=== PATIENT | female | born 2000 | race Two or more races ===

== ENCOUNTER 2024-07-05 18:03 | Emergency (ER) | payer SELFPAY ==
--- NOTE | 2024-07-05 18:34 | PD.EDADDENDU ---
Emergency Room Addendum Addendum Narrative: 23 year old female currently (GA 25 5/7 weeks). Here with abdominal pain, decreased movement, headache, and dizziness. High risk for preemclamsia. Exam unremarkable. Cleared for further care in our L&D department. Stalin Helton MD
--- NOTE | 2024-07-05 18:53 | XR_ITS ---
Examination: Complete OB ultrasound, less than 14 weeks, transabdominal Date and time of exam: July 05, 2024 1920 hours INDICATIONS: Pelvic cramping and vaginal bleeding beginning today Technique: Obstetrical ultrasound images less than 14 weeks performed via transabdominal imaging Findings: Uterus 8.4 cm with intrauterine gestational sac 1.3 cm corresponding to 6 weeks 1 day gestational age No pole, no cardiac activity Right ovary 2.5 cm artery no flow Left ovary 2.3 cm arterial flow IMPRESSION: Empty intrauterine gestational sac corresponding to 6 weeks 1 day, no pole, no cardiac activity Recommend transvaginal pelvic sonography follow-up to best assess for viability
[2024-07-05 19:18] VITALS: BP 110/72; PULSE 74; RESP 16; TEMP 37.2; O2SAT 100; BMI 25.9
[2024-07-05 19:26] LABS: Basophils # (Auto) 0.1 Thou/mm3 (0.0-0.2); Basophils % (Auto) 1 % (0-2.5); Eosinophils # (Auto) 0.1 Thou/mm3 (0.0-0.5); Eosinophils % (Auto) 1 % (0-10); Hematocrit 36.7 % (36.0-46.0); Hemoglobin 12.4 g/dL (12.0-16.0); Immature Granulocytes % (Auto) 1 % (0-0); Immature Granulocytes Auto 0.06 Thou/mm3 (0.00-0.00); Lymphocytes # (Auto) 2.5 Thou/mm3 (1.0-4.8); Lymphocytes % (Auto) 25 % (10-50); Mean Corpuscular HGB Conc 33.8 g/dl (31.0-37.0); Mean Corpuscular Hemoglobin 29.9 pg (25.0-35.0); Mean Corpuscular Volume 88 fL (80-100); Monocytes # (Auto) 0.7 Thou/mm3 (0.0-0.8); Monocytes % (Auto) 6 % (0-12); Neutrophils # (Auto) 6.8 Thou/mm3 (1.8-7.7); Neutrophils % (Auto) 66 % (37-80); Nucleated Red Blood Cell % 0 /100 WBC (0); Platelet Count 235 Thou/mm3 (140-440); RDW Standard Deviation 40.5 fL (36.4-46.3); Red Blood Count 4.15 Miln/mm3 (4.00-5.20); White Blood Count 10.3 Thou/mm3 (3.6-11.0)
[2024-07-05 19:47] LABS: Alanine Aminotransferase 15 U/L (10-49); Albumin, Serum 4.1 gm/dL (3.5-5.0); Albumin/Globulin Ratio 1.5 (1.2-2.2); Alkaline Phosphatase 92 U/L (46-116); Anion Gap 9 (7-16); Aspartate Amino Transferase 21 U/L (0-34); BUN/Creatinine Ratio 13 Ratio (12-20); Bilirubin,Total 0.3 mg/dL (0.3-1.2); Blood Urea Nitrogen 9 mg/dL (9-23); Calcium 9.5 mg/dL (8.3-10.6); Calcium (Corrected) 9.5 mg/dL (8.5-10.1); Carbon Dioxide 22.2 mMol/L (20.0-31.0); Chloride 107 mMol/L (98-107); Creatinine (Component) 0.7 mg/dL (0.6-1.3); Estimated Creatinine Clearance 109.2 mL/min (>60); Globulin 2.7 gm/dL (2.3-3.5); Glucose 93 mg/dL (74-106); Magnesium 1.9 mg/dL (1.6-2.6); Osmolality,Calculated 274 (275-295); Potassium 3.8 mMol/L (3.4-5.1); Sodium 138 mMol/L (136-145); Total Protein 6.8 gm/dL (5.7-8.2); eGFR > 60 See Note
--- NOTE | 2024-07-05 19:47 | PD.EDVAGBL ---
ED OB Contraction Preg RMI/HPI General Chief complaint: Vaginal Bleeding Stated complaint: VAGINAL BLEEDING Time Seen by Provider: 07/05/24 18:10 Arrival date/time: 07/05/24 18:03 RME / HPI RME / HPI Narrative: This section includes all my notes and documentations, including HPI, PE, and ED course. Stalin Helton MD HPI: 23-year-old female here with a couple day history of vaginal spotting. She is currently based on home test. Last menstruation was about 1-1/2 months ago. Slight cramping. No other complaints. ROS: All negative except as documented in HPI. Physical Exam: General: Alert and oriented. No acute distress when remaining still. Eyes: Conjunctivae and lids clear. ENT: No nasal congestion. Neck: Supple. Heart: RRR. Lungs: No respiratory distress. Good air movement. No rhonchi, wheezing, rales. Abdomen: Soft and nontender. Normal bowel sounds. No distension. No rebound or guarding. Back: No CVA tenderness. Skin: Warm and dry. Neuro: Alert and oriented X 3. I reviewed all diagnostic test results. My review of the OB ultrasound report is IUP (6 1/7 weeks) but no cardiac activity. Blood tests and urine tests normal, beta-hCG 26973. At this point, diagnoses include threatened . Recommended expectant management. Based on my best medical judgment, made decision no further evaluation or treatment indicated at this time. Patient understands and agrees to the discharge instructions customized and printed, see below. Discharge Instructions from Dr. Helton: 1.? ? ? After evaluation, you are . 2.? ? ? Today, your GA is 6 1/7 weeks.? 3.? ? ? Only time will determine whether you will have a successful or you will have a miscarriage.? If your symptoms stop, you can have a successful .? If your symptoms worsen, you may have a miscarriage.? If you have a miscarriage, unfortunately we won?t be able to save the baby because it?s too early.? Under 20 weeks, unfortunately we can?t help.?? 4.? ? ? See a private doctor on 07/08/2024 for recheck and further care.? No sexual activity until cleared by a doctor taking care of you.?? Ask to review all test results and official radiology reports, to make sure you receive all necessary follow-ups and monitoring. If needed, ask for help with repeat ultrasound. 5.? ? ? Seek immediate medical care for severe bleeding (soaking more than 3 pads per hour), intolerable pain, or with any concerns.? Instrucciones de mir de la Dra. Helton: 1. Despu?s de la evaluaci?n, est? embarazada. 2. Hoy, burnette edad gestacional es de 6 1/7 semanas. 3. Solo el tiempo determinar? si tendr? un embarazo exitoso o sufrir? un aborto espont?castro. Si akua s?ntomas desaparecen, puede tener un embarazo exitoso. Si akua s?ntomas empeoran, podr?a sufrir un aborto espont?castro. Si sufre un aborto espont?castro, lamentablemente no podremos salvar al beb? porque es demasiado pronto. Si tiene menos de 20 semanas, lamentablemente no podemos ayudarla. 4. Consulte con un m?dico privado el 08/07/2024 para aleks nueva revisi?n y atenci?n adicional. No tenga relaciones sexuales hasta que el m?dico que la atienda lo autorice. Solicite la revisi?n de todos los resultados de las pruebas y los informes radiol?gicos oficiales para asegurarse de recibir todos los seguimientos y la monitorizaci?n necesarios. Si es necesario, solicite ayuda para repetir la ecograf?a. 5. Busque atenci?n m?dica inmediata si tiene sangrado intenso (m?s de 3 toallas sanitarias empapadas por hora), dolor insoportable o cualquier otra inquietud. Stalin Helton MD Related Data Allergies Allergy/AdvReac Type Severity Reaction Status Date / Time No Known Allergies Allergy Verified 07/05/24 18:07 Course Quality Measures none Orders Category Date Time Status US OB <= 14 weeks fetus Stat Exams 07/05/24 18:53 Completed Beta HCG,Quantitative Stat Lab 07/05/24 19:14 Completed CBC Stat Lab 07/05/24 19:14 Completed CMP [Comprehensive Metabolic Panel] Stat Lab 07/05/24 19:14 Completed Magnesium Stat Lab 07/05/24 19:14 Completed Rh Testing Only Stat Lab 07/05/24 19:14 Received UA, C/S IF [Urinalysis, C/S if Indicated] Stat Lab 07/05/24 19:43 Completed Vital Signs Vital signs: Vital Signs Temperature 98.9 F 07/05/24 19:18 Pulse Rate 74 07/05/24 19:18 Respiratory Rate 16 07/05/24 19:18 Blood Pressure 110/72 07/05/24 19:18 Pulse Oximetry (%) 100 07/05/24 19:18 Oxygen Delivery Method Room Air 07/05/24 19:18 Vaginal Bleeding Patient data External records reviewed:: None Clinical information provided by:: patient Social determinants that could affect healthcare access:: none Patient has the following chronic illnesses:: None How is presenting disease/condition affected by chronic disease/condition?: no chronic disease Evaluation data The following diagnostics were reviewed and interpreted by me:: lab results and radiology exam(s) Lab and/or radiology exams considered but not ordered:: None Interpretation Summary: IUP Medications / Prescriptions Medications or Prescriptions considered but not ordered:: None Medication administrations:: None Consultations Consultation(s) initiated? (list below): No Diagnosis Vaginal Bleeding Differential Diagnosis: missed , threatened , dysfunctional uterine bleeding, incomplete and ectopic without intrauterine Most likely diagnosis given after review of the tests above:: Threatened Admission Indicated Admission indicated?: not indicated Explain why admission is indicated or not indicated:: There was no indication for admission. Admission Request Was there a request for admission?: No Disposition Plan Disposition Plan: Discharge Discharge Attestation Discharge Attestation: The patient and all family members were given an opportunity to ask questions and understood the discharge instructions. Discharge instructions specifically effects, indications for sooner follow up or return to the emergency department, and the expected course of current diagnosis. Patient condition: Stable Discharge Plan Plan Patient Disposition: HOME (Self Care) Problem List Clinical Impression: Threatened miscarriage Patient/Caregiver Discharge Instructions Discharge Activity: activity as tolerated Education Materials: ED Possible Miscarriage ... Additional Instructions: Discharge Instructions from Dr. Helton: 1.? ? ? After evaluation, you are . 2.? ? ? Today, your GA is 6 1/7 weeks.? 3.? ? ? Only time will determine whether you will have a successful or you will have a miscarriage.? If your symptoms stop, you can have a successful .? If your symptoms worsen, you may have a miscarriage.? If you have a miscarriage, unfortunately we won?t be able to save the baby because it?s too early.? Under 20 weeks, unfortunately we can?t help.?? 4.? ? ? See a private doctor on 07/08/2024 for recheck and further care.? No sexual activity until cleared by a doctor taking care of you.?? Ask to review all test results and official radiology reports, to make sure you receive all necessary follow-ups and monitoring. If needed, ask for help with repeat ultrasound. 5.? ? ? Seek immediate medical care for severe bleeding (soaking more than 3 pads per hour), intolerable pain, or with any concerns.? Instrucciones de mir de la Dra. Helton: 1. Despu?s de la evaluaci?n, est? embarazada. 2. Hoy, burnette edad gestacional es de 6 1/7 semanas. 3. Solo el tiempo determinar? si tendr? un embarazo exitoso o sufrir? un aborto espont?castro. Si akua s?ntomas desaparecen, puede tener un embarazo exitoso. Si akua s?ntomas empeoran, podr?a sufrir un aborto espont?castor. Si sufre un aborto espont?castro, lamentablemente no podremos salvar al beb? porque es demasiado pronto. Si tiene menos de 20 semanas, lamentablemente no podemos ayudarla. 4. Consulte con un m?dico privado el 08/07/2024 para aleks nueva revisi?n y atenci?n adicional. No tenga relaciones sexuales hasta que el m?dico que la atienda lo autorice. Solicite la revisi?n de todos los resultados de las pruebas y los informes radiol?gicos oficiales para asegurarse de recibir todos los seguimientos y la monitorizaci?n necesarios. Si es necesario, solicite ayuda para repetir la ecograf?a. 5. Busque atenci?n m?dica inmediata si tiene sangrado intenso (m?s de 3 toallas sanitarias empapadas por hora), dolor insoportable o cualquier otra inquietud. Print Language: Monegasque Stand Alone Forms: Ashley Award Info., Patient Portal Info Letter
[2024-07-05 19:53] LABS: Collection Type, Urine Clean Catch
[2024-07-05 19:57] LABS: Bilirubin,Urine Negative (Negative); Blood,Urine 2+ (Negative); Clarity,Urine Clear (Clear/Hazy); Color,Urine Lt-Yellow (Lt Yel-Yel); Culture Indicated,Urine Not Indicated; Glucose, Urine Negative (Negative); Ketones,Urine Negative (Negative); Leukocyte Esterase,Urine Negative (Negative); Nitrite,Urine Negative (Negative); PH,Urine 6.5 (5.0-7.0); Protein,Urine Negative (Neg - Trace); RBC,Urine 1 /hpf (0-3); Specific Gravity,Urine 1.015 (1.001-1.035); Squamous Epithelial Cell,Urine 1 /hpf (0-5); Urobilinogen,Urine Negative mg/dL (0.0-1.0); WBC,Urine < 1 /hpf (0-5)
[2024-07-05 20:26] LABS: Beta HCG,Quantitative 28536 mIU/mL (<5.0)
[2024-07-05 20:44] VITALS: RESP 18
== END 2024-07-05 20:44 | disposition home or self-care (01) ==
LOC: SERX 21:43
PROVIDERS: Emergency Provider Emergency Medicine
DX: O20.0 Threatened abortion (principal); Z3A.01 Less than 8 weeks gestation of pregnancy
CPT/HCPCS: 36415; 76801; 80053; 81001; 83735; 84702; 85025; 86901; 99284

== ENCOUNTER 2024-09-21 12:25 | Emergency (ER) | payer MEDICAID, SELFPAY ==
[2024-09-21 12:25] VITALS: BP 102/65; PULSE 80; RESP 18; TEMP 37.5; O2SAT 99
--- NOTE | 2024-09-21 12:30 | XR_ITS ---
Examination: Complete OB ultrasound greater than 14 weeks Date and time of exam: 2024 1305 hours INDICATIONS: Pelvic pain and vomiting today Findings: Viable intrauterine single fetus with single amniotic sac presentation variable Cardiac motion 132 BPM Placenta anterior grade 1 Three-vessel umbilical cord insertion seen Amniotic fluid volume adequate spine maternal left ventricle Cervix 5.9 cm Ovaries obscured by gas. Composite estimated gestational age based on BPD, head circumference, abdominal circumference, femur length is 17 weeks 0 days Estimated weight 157 g. Survey of intracranial anatomy, spinal anatomy, abdominal anatomy, four-chamber heart performed with no abnormalities identified. Impression: Viable uterine gestation breech presentation.
--- NOTE | 2024-09-21 12:30 | XR_ITS ---
Examination: Abdomen sonogram, Limited Date and time of exam: September 21, 2024 1300 hours INDICATIONS: Right upper abdominal pain pelvic pain today Technique: Real-time hernández scale transabdominal sonographic images of the upper abdomen obtained. Findings: Normal gallbladder Normal common bile duct 0.2 cm Pancreatic head 2.3 cm Liver 11.8 cm no liver lesions Normal hepatopedal portal venous flow Patent IVC IMPRESSION: Normal gallbladder
--- NOTE | 2024-09-21 12:33 | EDNOTE_ITS ---
Upper Respiratory Inf. RME/HPI General Chief Complaint: Abdominal Pain Stated Complaint: ABDOMINAL PAIN @ 18wks Grav2 Para2 Time Seen by Provider: 09/21/24 12:26 Arrival date/time: 09/21/24 12:25 Limitations: no limitations RME / HPI RME / HPI Narrative: 23 year old female currently sab0. Brought in by ambulance for sharp sudden pain and vomiting. Was noted to have low blood pressure on arrival after episode of vomiting. No diarrhea no fever. No vaginal bleeding. Related Data Allergies Allergy/AdvReac Type Severity Reaction Status Date / Time No Known Allergies Allergy Verified 07/05/24 18:07 Review of Systems Review of Systems Systems Reviewed: All systems reviewed, normal except as documented Constitutional Constitutional: Denies fever(s) Gastrointestinal Gastrointestinal: Reports as per HPI Genitourinary Genitourinary: Reports as per HPI Musculoskeletal Musculoskeletal: Reports as per HPI Integumentary/Breasts Skin/Breast: Denies changing lesions ED Exam General Limitations: Present no limitations General appearance: Present alert and in no apparent distress Eye Eye exam: Present normal appearance, PERRL and EOMI Respiratory Respiratory exam: Present normal lung sounds bilaterally Cardiovascular Cardiovascular exam: Present regular rate, normal rhythm and normal heart sounds Abdominal Exam Abdominal exam: Present soft and normal bowel sounds Extremities Exam Extremities exam: Present normal inspection and full ROM Back Exam Back exam: Present normal inspection and full ROM Psychiatric Psychiatric exam: Present normal affect and normal mood Skin Skin exam: Present warm, dry, intact and normal color Course Quality Measures none Orders Category Date Time Status US OB >= 14 weeks Fetus Stat Exams 09/21/24 12:30 Completed US gall bladder Stat Exams 09/21/24 12:30 Completed ABO/RH Type - Stat Lab 09/21/24 13:05 Completed Beta HCG,Quantitative Stat Lab 09/21/24 13:05 Completed CBC Stat Lab 09/21/24 13:05 Completed CMP [Comprehensive Metabolic Panel] Stat Lab 09/21/24 13:05 Completed Lipase Stat Lab 09/21/24 13:05 Completed UA [Urinalysis] Stat Lab 09/21/24 14:25 Completed Vital Signs Vital signs: Vital Signs Temperature 99.5 F 09/21/24 12:25 Pulse Rate 80 09/21/24 12:25 Respiratory Rate 18 09/21/24 12:25 Blood Pressure 102/65 09/21/24 12:25 Pulse Oximetry (%) 99 09/21/24 12:25 Oxygen Delivery Method Room Air 09/21/24 12:25 Upper Respiratory Infection MDM Narrative MDM Narrative:: Workup was reassuring vomiting pelvic pain and changes in blood pressure cannot be attributed to gestational weeks Patient data External records reviewed:: [facility] previous records Clinical information provided by:: patient and EMS Social determinants that could affect healthcare access:: other (specify) (Cannot be seen by PCP today) Patient has the following chronic illnesses:: How is presenting disease/condition affected by chronic disease/condition?: exacerbated by Evaluation data The following diagnostics were reviewed and interpreted by me:: lab results and radiology exam(s) Lab and/or radiology exams considered but not ordered:: Chest x-ray unlikely to change the course of plan Interpretation Summary: UA does not suggest UTI, ultrasound of gallbladder does not suggest gallstones, pelvic ultrasound does not show subchronic hemorrhage or concern Medications / Prescriptions Medications or Prescriptions considered but not ordered:: Consider antibiotic but unlikely to be beneficial Medication administrations:: Fluids given here and patient's blood pressure improved Consultations Consultation(s) initiated? (list below): No Diagnosis Upper Respiratory Differential Diagnosis: other Most likely diagnosis given after review of the tests above:: UTI, spontaneous , abdominal pain in Admission Indicated Admission indicated?: not indicated Admission Request Was there a request for admission?: No Disposition Plan Disposition Plan: Discharge Discharge Attestation Discharge Attestation: The patient and all family members were given an opportunity to ask questions and understood the discharge instructions. Discharge instructions specifically effects, indications for sooner follow up or return to the emergency department, and the expected course of current diagnosis. Patient condition: Stable Discharge Plan Plan Patient Disposition: HOME (Self Care) Discharge Disposition comment: Follow-up with PCP in 2 to 3 days Prescriptions/Referrals Referrals: Zi Castro MD [Primary Care Provider] - In 1 week Problem List Clinical Impression: Abdominal pain affecting , Nausea & vomiting, Hypotension Patient/Caregiver Discharge Instructions Education Materials: Abdominal Pain Print Language: Omani Stand Alone Forms: Ashley Award Info., Patient Portal Info Letter PA/BUSINESS SUPPORT PROFESSIONAL Supervising Physician PA/BUSINESS SUPPORT PROFESSIONAL Supervising Physician: Dr. brunson
[2024-09-21 12:47] VITALS: BMI 27.1
[2024-09-21 13:27] LABS: Basophils % (Auto) 0 % (0-2.5); Eosinophils # (Auto) 0.1 Thou/mm3 (0.0-0.5); Eosinophils % (Auto) 1 % (0-10); Hematocrit 32.2 % (36.0-46.0); Hemoglobin 11.5 g/dL (12.0-16.0); Immature Granulocytes % (Auto) 0 % (0-0); Immature Granulocytes Auto 0.04 Thou/mm3 (0.00-0.00); Lymphocytes # (Auto) 1.4 Thou/mm3 (1.0-4.8); Lymphocytes % (Auto) 15 % (10-50); Mean Corpuscular HGB Conc 35.7 g/dl (31.0-37.0); Mean Corpuscular Hemoglobin 30.4 pg (25.0-35.0); Mean Corpuscular Volume 85 fL (80-100); Monocytes # (Auto) 0.4 Thou/mm3 (0.0-0.8); Monocytes % (Auto) 5 % (0-12); Neutrophils # (Auto) 7.2 Thou/mm3 (1.8-7.7); Neutrophils % (Auto) 78 % (37-80); Nucleated Red Blood Cell % 0 /100 WBC (0); Platelet Count 245 Thou/mm3 (140-440); RDW Standard Deviation 38.4 fL (36.4-46.3); Red Blood Count 3.78 Miln/mm3 (4.00-5.20); White Blood Count 9.2 Thou/mm3 (3.6-11.0)
[2024-09-21 13:59] LABS: Alanine Aminotransferase < 7 U/L (10-49); Albumin, Serum 3.4 gm/dL (3.5-5.0); Albumin/Globulin Ratio 1.6 (1.2-2.2); Alkaline Phosphatase 64 U/L (46-116); Anion Gap 10 (7-16); BUN/Creatinine Ratio 10 Ratio (12-20); Bilirubin,Total 0.2 mg/dL (0.3-1.2); Blood Urea Nitrogen 5 mg/dL (9-23); Calcium 8.8 mg/dL (8.3-10.6); Calcium (Corrected) 9.3 mg/dL (8.5-10.1); Carbon Dioxide 22.9 mMol/L (20.0-31.0); Chloride 108 mMol/L (98-107); Creatinine (Component) 0.5 mg/dL (0.6-1.3); Estimated Creatinine Clearance 139.7 mL/min (>60); Globulin 2.1 gm/dL (2.3-3.5); Glucose 87 mg/dL (74-106); Lipase 21 U/L (12-53); Osmolality,Calculated 277 (275-295); Potassium 3.7 mMol/L (3.4-5.1); Sodium 141 mMol/L (136-145); Total Protein 5.5 gm/dL (5.7-8.2); eGFR > 60 See Note
[2024-09-21 14:32] LABS: Beta HCG,Quantitative 30695 mIU/mL (<5.0)
[2024-09-21 14:39] LABS: Collection Type, Urine Clean Catch
[2024-09-21 14:52] LABS: Bilirubin,Urine Negative (Negative); Blood,Urine Negative (Negative); Clarity,Urine Clear (Clear/Hazy); Glucose, Urine Negative (Negative); Ketones,Urine 2+ (Negative); Leukocyte Esterase,Urine Negative (Negative); Nitrite,Urine Negative (Negative); PH,Urine 7.5 (5.0-7.0); Protein,Urine Negative (Neg - Trace); RBC,Urine 7 /hpf (0-3); Specific Gravity,Urine 1.012 (1.001-1.035); Squamous Epithelial Cell,Urine 2 /hpf (0-5); Urobilinogen,Urine Negative mg/dL (0.0-1.0); WBC,Urine 1 /hpf (0-5)
[2024-09-21 14:54] LABS: Color,Urine Lt-Yellow (Lt Yel-Yel)
[2024-09-21 15:31] VITALS: BP 106/71; PULSE 82; RESP 16; TEMP 37.3; O2SAT 100
== END 2024-09-21 15:36 | disposition home or self-care (01) ==
PROVIDERS: Physician Assistant; Emergency Provider Family Medicine; PCP Family Medicine
DX: O99.891 Other specified diseases and conditions complicating pregnancy (principal); O21.9 Vomiting of pregnancy, unspecified; I95.9 Hypotension, unspecified; R10.11 Right upper quadrant pain; R10.2 Pelvic and perineal pain; Z3A.17 17 weeks gestation of pregnancy
CPT/HCPCS: 36415; 76705; 76805; 80053; 81001; 83690; 84702; 85025; 86900; 86901; 99284

== ENCOUNTER 2024-11-16 11:04 | Outpatient (AMB) | payer MEDICAID, SELFPAY ==
[2024-11-16 11:30] VITALS: BP 107/72; PULSE 79; RESP 17; TEMP 36.6; O2SAT 99; BMI 28.3
--- NOTE | 2024-11-16 11:30 | OBCLNT_ITS ---
Vital Signs 11/16/24 11:30 Height 1.52 m Height Method Stated Weight 65.431 kg Weight Measurement Method Standing Scale BMI 28.3 BP 107/72 Blood Pressure Source Automatic Cuff Blood Pressure Location Right Upper Arm Position Sitting Respiration 17 Pulse 79 Pulse Source Monitor Temp 97.8 F Temp Source Temporal Artery Scan Pulse Oximetry (%) 99 Oxygen Delivery Method Room Air Allergies/Home Meds Allergies & Medications Allergies No Known Allergies Allergy (Verified 11/16/24 11:31) Medication Reconciliation vitamin-ferrous fumarate 28 mg iron-folic acid 800 mcg tablet ( Vitamins with Minerals) 1 tab PO QDAY #60 tabs 11/16/24 [Rx] Intake Visit Data Collection New Patient or Established: Established Patient (seen at [facility] within 3 years) Reason for Visit:: OBI Seen by Clinical Staff ONLY (RN/MA): No 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 1. Little interest or pleasure in doing things: not at all 2. Feeling down, depressed, or hopeless: not at all Total score: 0 PHQ-9 3. Trouble falling or staying asleep, or sleeping too much: Not at all 4. Feeling tired or having little energy: Not at all 5. Poor appetite or overeating: Not at all 6. Feeling bad about yourself - or that you are a failure or have let yourself or your family down: Not at all 7. Trouble concentrating on things, such as reading the newspaper or watching television: Not at all 8. Moving or speaking so slowly that other people could have noticed? - Or the opposite - being so fidgety or restless that you have been moving around a lot more than usual: not at all 9. Thoughts that you would be better off or of hurting yourself in some way: Not at all Total score: 0 If you checked off any problems, how difficult have these problems made it for you to do your work, take care of things at home, or get along with other people?: not difficult at all Source: Developed by Drs. Rolly Maradiaga, Sara Maldonado, Aung Nunn and colleagues, with an educational emely from [employer]. Depression screen completed yes Social History Living Situation History Marital Status: Life Partner Lives With: Family Housing: House Tobacco History Smoking Status: Never smoker Second Hand Smoke Exposure: No Alcohol History Alcohol Intake: Never Domestic Abuse History Do You Feel Safe at Home: Yes History of Present Illness HPI Narrative 24-year-old 2 para 1 for OBI. Patient's last menstrual period was May 18, 2024. This gives due date February 22, 2025. Patient is sure about her dates. Patient had a positive test at [facility] in May. She was given a prescription for vitamins and that she has not had care since. Denies social habits. Denies surgery. Denies chronic illness. Father of the baby is involved. Patient is a 4-year-old at home. Reports good movement. Denies any signs and symptoms of labor. 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 No pTL or ob complaints. Denies LOF.VB.UC, fetus active. needs refill PNV. unable to go to [facility], no transportation, Sono today at [facility] [place] [place], refill pnv. OB panel, NIPT and carrier, 1 hr gtt/tsh. discuss PTL precaution, hydrate. rtc 4 week obc Menstrual History Menstrual reliability: definite Flow: normal Menstrual regularity: regular Monthly: Yes Age at menarche: 14 On control pills at conception: No OB History : 2 Para: 1 # of Living Children: 1 Delivery History 1st : Child's name: EULOGIO MAGDALENO date: 07/11/19 sex: female Gestational age at delivery (weeks): 40 Delivery type: vaginal weight (lbs): 2721.554 g History of depression before or after : No Infection History & Risk Evaluation History of STDs: none HIV risk evaluation: low risk Hepatitis B risk evaluation: low risk Patient or partner has history of Genital Herpes: No Varicella/chicken pox status: unknown Genetic Screening & History Genetic Screening/Teratology Counseling - Includes patient, baby's father, or anyone in either family with: 1. Patient's age 35 years or older as of estimated date of delivery: No 2. Thalassemia (Tajik, Italian, Mediterranean, or Background); MCV less th an 80: No 3. Neural Tube Defect (Meningomyelocele, Spina Bifida, or Anencephaly): No 4. Congenital Heart Defect: No 5. Down Syndrome: No 6. Cale-Sachs (Ashkenazi Anabaptist, Cajun, Turkish [place]): No 7. Dejan Disease (Ashkenazi Anabaptist): No 8. Familial Dysautonomia (Ashkenazi Anabaptist): No 9. Sickle Cell Disease or Trait (): No 10. Hemophilia or other blood disorders: No 11. Muscular Dystrophy: No 12. Cystic Fibrosis: No 13. Trafalgar's Chorea: No 14. Mental Retardation/Autism: No 15. Other inherited genetic or chromosomal disorder: No 16. Maternal Metabolic Disorder (EG,TYPE 1 Diabetes, PKU): No 17. Patient or baby's father had a child with defects not listed above: No 18. Recurrent loss or a stillbirth: No 19. Medications (including supplements, vitamins, herbs or otc drugs)/illicit/recreational drugs/alcohol since last menstrual period: No 20. Any other: No Infection History 1. Live with someone with TB or exposed to TB: No 2. Rash or viral illness since last menstrual period: No 3. Hepatitis B,C: No Other (see comments) Source: [employer] Review of Systems Review of Systems Systems Reviewed: All systems reviewed, normal except as documented Exam Narrative Physical exam: euthyroid. FH: 25 General Limitations: no limitations General Appearance: alert, in no apparent distress, comfortable, cooperative, healthy appearing, well developed and well groomed Head Head exam: atraumatic, normocephalic and normal inspection Chest Chest inspection: Present normal inspection and symmetric chest wall rise Resp Respiratory exam: Present normal lung sounds bilaterally Card Cardiovascular exam: Present regular rate, normal rhythm and normal heart sounds Psych Psychiatric exam: Present normal affect and normal mood Office Procedures OB Clinic LOC & Office Proc's Nursing/Assessment Patient Status: Established Patient OB Clinic Nursing Assessment: Medication Reconciliation, Update PMH in EMR and Vital Signs OB Clinic Coordination of Care: Complex Care and Chronic Disease 1-5, Consent,records obtained, informed consent, Education Simp Pt/Fam, Lab and Imaging orders and Staff clarify orders Special Needs: Heart tones Established Patient Charge Established Patient Point Assignment: 130 Established Patient Point Charge: EP Level 4 (120-155) Assessment & Plan Diagnosis / Problem List (1) Encounter for supervision of high risk in second trimester, antepartum: Status: Acute (2) Supervision of with history of pre-term labor, second trimester: Status: Acute Plan OB sono today at [facility]. Patient was given lab slip for NIPT carrier screen, OB panel, and 1 hour GTT. Refill prenatals. Discussed labor precautions and danger signs symptoms. Increase fluids. Return in 4 weeks OB check Additional Plan Follow Up: 4 Weeks (obc)
== END 2024-11-16 11:49 | disposition home or self-care (01) ==
LOC: HODSOBC 11:04
PROVIDERS: PCP Family Medicine; Referring Provider Family Medicine; Supervising Provider Advanced Practice Midwife; Visit Provider Advanced Practice Midwife
DX: O09.212 Supervision of pregnancy with history of pre-term labor, second trimester (principal); Z3A.26 26 weeks gestation of pregnancy
CPT/HCPCS: 99214; G0463

== ENCOUNTER → 2024-11-16 | Outpatient (CLI) | payer MEDICAID, SELFPAY ==
--- NOTE | 2024-11-16 12:22 | XR_ITS ---
Examination: Complete OB ultrasound greater than 14 weeks Date and time of exam: November 16, 2024 1237 hours INDICATIONS: Unknown size and dates, history labor Findings: Viable intrauterine single fetus with single amniotic sac presentation breech Cardiac motion 133 BPM Placenta anterior grade 1 Umbilical cord insertion seen Amniotic fluid index 21 cm Cervix 4.5 cm Ovaries obscured by bowel gas. Composite estimated gestational age based on BPD, head circumference, abdominal circumference, femur length is 25 weeks 2 days Estimated weight 754.5 g Survey of intracranial anatomy, spinal anatomy, abdominal anatomy, four-chamber heart performed with no abnormalities identified. Impression: Viable intrauterine gestation breech presentation.
== END | disposition home or self-care (01) ==
PROVIDERS: Referring Provider Advanced Practice Midwife; Visit Provider Advanced Practice Midwife
DX: O32.1XX0 Maternal care for breech presentation, not applicable or unspecified (principal); Z3A.25 25 weeks gestation of pregnancy
CPT/HCPCS: 76805

== ENCOUNTER 2024-12-15 10:01 | Outpatient (AMB) | payer MEDICAID, SELFPAY ==
--- NOTE | 2024-12-15 10:55 | AMB.OBVISIT ---
Vital Signs 12/15/24 10:56 Height 1.52 m Height Method Stated Weight 68.209 kg Weight Measurement Method Standing Scale BMI 29.5 BP 107/70 Blood Pressure Source Automatic Cuff Blood Pressure Location Left Upper Arm Position Sitting Respiration 16 Pulse 81 Pulse Source Monitor Temp 97.9 F Temp Source Oral Pulse Oximetry (%) 98 Oxygen Delivery Method Room Air Allergies/Home Meds Allergies & Medications Allergies No Known Allergies Allergy (Verified 12/15/24 10:55) Medication Reconciliation vitamin-ferrous fumarate 28 mg iron-folic acid 800 mcg tablet ( Vitamins with Minerals) 1 tab PO QDAY #60 tabs 11/16/24 [Rx Confirmed 12/15/24] Intake Visit Data Collection New Patient or Established: Established Patient (seen at [facility] within 3 years) Reason for Visit:: CARE Seen by Clinical Staff ONLY (RN/MA): No Human Resources Designate Required: No Do You Feel Safe at Home: Yes Authorities Contacted: N/A PCP or OBGYN visit in last 3 months: Yes Hx Now: Yes Are you currently on any form of Control: No Pain Present Currently: No Pain Scale Used: Campos-Saba/Numerical Pain scale:: 0 Smoking Status Smoking Status: Never smoker Questionnaires Covid-19 Vaccine Questionnaire Has patient been vacinated for Covid-19 Have you been vacinated for Covid-19: Yes PHQ-9 PHQ-2 Over the last 2 weeks, how often have you been bothered by any of the following problems? 1. Little interest or pleasure in doing things: not at all 2. Feeling down, depressed, or hopeless: not at all Total score: 0 PHQ-9 3. Trouble falling or staying asleep, or sleeping too much: Not at all 4. Feeling tired or having little energy: Not at all 5. Poor appetite or overeating: Not at all 6. Feeling bad about yourself - or that you are a failure or have let yourself or your family down: Not at all 7. Trouble concentrating on things, such as reading the newspaper or watching television: Not at all 8. Moving or speaking so slowly that other people could have noticed? - Or the opposite - being so fidgety or restless that you have been moving around a lot more than usual: not at all 9. Thoughts that you would be better off or of hurting yourself in some way: Not at all Total score: 0 Source: Developed by Drs. Rolly Maradiaga, Sara Maldonado, Aung Nunn and colleagues, with an educational emely from [employer]. 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 No pTL or ob complaints. Denies LOF.VB.UC, fetus active. needs refill PNV. unable to go to [facility], no transportation, Sono today at [facility], refill pnv. OB panel, NIPT and carrier, 1 hr gtt/tsh. discuss PTL precaution, hydrate. rtc 4 week obc 12/15/24 <del>?</del> 30w 1d 68.209 kg 107/70 absent unknown 30 136 active Fetus active. Denies labor complaints. Patient would like Tdap. Reports good movement. Denies leaking. Denies bleeding. And patient agrees to [facility] appointment Tdap. Third trimester labs. Schedule maternal- medicine appointment with Dr. Rubin. Increase fluids. Discussed labor precautions. Return in 2 weeks at which discussed tea Tdap. 3 hr gtt labs. Schedule maternal- medicine appointment with Dr. Rubin. Increase fluids. Discussed labor precautions. Return in 2 weeks at which discussed TDAP today RAIN Calculator Estimated Delivery Date Method Current WG Current Estimate 02/22/25 LMP (Certain) 30w 1d Other Estimates 02/27/25 Ultrasound #1 29w 3d Notes Visit Date: 12/15/24 Last Updated by: Judith Maguire CNM 1 hr gtt: 156, A1: 5.4, NIPT-, CF/SMA-, O+.abs-, rpr;;nr, rub imm, HBSAG-,HIV-,HC-, GC/CT-, .3, UTI tx with macrobid Visit Date: 11/16/24 Last Updated by: Judith Maguire CNM 24 yo . lmp 05/18/24. EDC: 02/22/25 Office Procedures OB Clinic LOC & Office Proc's Nursing/Assessment Patient Status: Established Patient OB Clinic Nursing Assessment: Medication Reconciliation, Update PMH in EMR and Vital Signs OB Clinic Coordination of Care: Complex Care and Chronic Disease 1-5, Consent,records obtained, informed consent, Education Simp Pt/Fam, 1 Ins Authorization, Lab and Imaging orders, Results/Orders obtained and Staff clarify orders Special Needs: Heart tones Established Patient Charge Established Patient Point Assignment: 150 Established Patient Point Charge: EP Level 4 (120-155) Immunizations diphth,pertus(acell),tetanus 2.5 Lf unit-8 mcg-5 Lf/0.5mL IM syringe Performing Provider: Judith Maguire CNM Performing Location: [facility] Administered by: Mesha Jacobson MA on 12/15/24 16:30 Dose Route Admin Location Dispensed Lot Number Expiration Date [facility] Senior Sales Operations Manager 0.5 mL IM Left Deltoid 0.5 mL [id number] 02/05/27 60725-058-11 [employer] VIS Given Date VIS Provided VIS Publication Date 12/15/24 Single Vaccine 24 Eligibility Eligibility Date Funding Source Public Non[facility] Assessment & Plan Diagnosis / Problem List (1) Encounter for supervision of high risk in third trimester, antepartum: Status: Acute Plan Tdap today. Scheduled maternal- medicine appointment for growth with Dr. Rubin. Discussed labor precautions. Increase fluids. Reviewed labs. 3-hour GTT ordered. Return in 2 weeks OB check Additional Plan Follow Up: 2 Weeks (obc) 2 Weeks
[2024-12-15 10:56] VITALS: BP 107/70; PULSE 81; RESP 16; TEMP 36.6; O2SAT 98; BMI 29.5
== END 2024-12-15 11:25 | disposition home or self-care (01) ==
LOC: HODSOBC 10:01
PROVIDERS: PCP Family Medicine; Referring Provider Family Medicine; Supervising Provider Advanced Practice Midwife; Visit Provider Advanced Practice Midwife
DX: O09.93 Supervision of high risk pregnancy, unspecified, third trimester (principal); Z3A.30 30 weeks gestation of pregnancy; Z23 Encounter for immunization
CPT/HCPCS: 90471; 90715; 99214; G0463

== ENCOUNTER 2024-12-29 10:22 | Outpatient (AMB) | payer MEDICAID, SELFPAY ==
[2024-12-29 10:31] VITALS: BP 112/74; PULSE 97; RESP 18; TEMP 36.3; O2SAT 98; BMI 30.3
--- NOTE | 2024-12-29 10:31 | OBCLNT_ITS ---
Vital Signs 12/29/24 10:31 Height 1.52 m Height Method Stated Weight 70.023 kg Weight Measurement Method Standing Scale BMI 30.3 BP 112/74 Blood Pressure Source Automatic Cuff Blood Pressure Location Left Upper Arm Position Sitting Respiration 18 Pulse 97 Pulse Source Monitor Temp 97.3 F Temp Source Oral Pulse Oximetry (%) 98 Oxygen Delivery Method Room Air Allergies/Home Meds Allergies & Medications Allergies No Known Allergies Allergy (Verified 12/29/24 10:32) Medication Reconciliation vitamin-ferrous fumarate 28 mg iron-folic acid 800 mcg tablet ( Vitamins with Minerals) 1 tab PO QDAY #60 tabs 11/16/24 [Rx Confirmed 12/29/24] Intake Visit Data Collection New Patient or Established: Established Patient (seen at [facility] within 3 years) Reason for Visit:: CARE Seen by Clinical Staff ONLY (RN/MA): No Bench Manager Required: No Do You Feel Safe at Home: Yes Authorities Contacted: N/A PCP or OBGYN visit in last 3 months: Yes Hx Now: Yes Are you currently on any form of Control: No Pain Present Currently: No Pain Scale Used: Campos-Saba/Numerical Pain scale:: 0 Smoking Status Smoking Status: Never smoker Questionnaires Covid-19 Vaccine Questionnaire Has patient been vacinated for Covid-19 Have you been vacinated for Covid-19: Yes PHQ-9 PHQ-2 Over the last 2 weeks, how often have you been bothered by any of the following problems? 1. Little interest or pleasure in doing things: not at all 2. Feeling down, depressed, or hopeless: not at all Total score: 0 PHQ-9 3. Trouble falling or staying asleep, or sleeping too much: Not at all 4. Feeling tired or having little energy: Not at all 5. Poor appetite or overeating: Not at all 6. Feeling bad about yourself - or that you are a failure or have let yourself or your family down: Not at all 7. Trouble concentrating on things, such as reading the newspaper or watching television: Not at all 8. Moving or speaking so slowly that other people could have noticed? - Or the opposite - being so fidgety or restless that you have been moving around a lot more than usual: not at all 9. Thoughts that you would be better off or of hurting yourself in some way: Not at all Total score: 0 Source: Developed by Drs. Rolly Maradiaga, Sara Maldonado, Aung Nunn and colleagues, with an educational emely from [employer]. 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 No pTL or ob complaints. Denies LOF.VB.UC, fetus active. needs refill PNV. unable to go to [facility], no transportation, Sono today at [facility] [place], refill pnv. OB panel, NIPT and carrier, 1 hr gtt/tsh. discuss PTL precaution, hydrate. rtc 4 week obc 12/15/24 -?-?-?-?-?-?-?-?-?-?-?-?- 30w 1d 68.209 kg 107/70 absent unknown 30 136 active Fetus active. Denies labor complaints. Patient would like Tdap. Reports good movement. Denies leaking. Denies bleeding. And patient agrees to [facility] appointment Tdap. Third tri mester labs. Schedule maternal- medicine appointment with Dr. Rubin. Increase fluids. Discussed labor precautions. Return in 2 weeks at which discussed tea Tdap. 3 hr gtt labs. [place] maternal- medicine appointment with Dr. Rubin. Increase fluids. Discussed labor precautions. Return in 2 weeks at which discussed TDAP today 12/29/24 -?-?-?-?-?-?-?-?-?-?-?-?- 32w 1d 70.023 kg 112/74 absent unknown 32 135 active Reports good movement. Fetus is active. Denies any signs symptoms of labor. Denies bleeding, contractions, leakage Discussed diet and weight. Increase activity. Patient declined ultrasound with maternal- medicine. So scheduled with [facility] for growth ultrasound. Discussed labor precautions. Increase fluids. Continue prenatals. Limit carbs and sugary foods and return in 2 weeks OB check. RAIN Calculator Estimated Delivery Date Method Current WG Current Estimate 02/22/25 LMP (Certain) 32w 1d Other Estimates 02/27/25 Ultrasound #1 31w 3d Notes Visit Date: 12/29/24 Last Updated by: Judith Maguire CNM 24 yo . LMP 05/18/24: edc: 02/22/25 final: RAIN: 02/22/25 1 hr gtt: 156/3 hr gtt wnl Visit Date: 12/15/24 Last Updated by: Judith Maguire CNM 1 hr gtt: 156, A1: 5.4, NIPT-, CF/SMA-, O+.abs-, rpr;;nr, rub imm, HBSAG-,HIV-,HC-, GC/CT-, .3, UTI tx with macrobid Visit Date: 11/16/24 Last Updated by: Judith Maguire CNM 24 yo . lmp 05/18/24. EDC: 02/22/25 Office Procedures OB Clinic LOC & Office Proc's Nursing/Assessment Patient Status: Established Patient OB Clinic Nursing Assessment: Medication Reconciliation, Update PMH in EMR and Vital Signs OB Clinic Coordination of Care: Complex Care and Chronic Disease 1-5, Consent,records obtained, informed consent, Education Simp Pt/Fam, 1 Ins Authorization, Lab and Imaging orders, Results/Orders obtained and Staff clarify orders Special Needs: Heart tones Established Patient Charge Established Patient Point Assignment: 150 Established Patient Point Charge: EP Level 4 (120-155) Assessment & Plan Diagnosis / Problem List (1) Encounter for supervision of high risk in third trimester, antepartum: Status: Acute Plan Schedule sono for growth at [facility]. Discussed labor precautions. I reviewed diet and weight gain with patient. Encouraged to walk 40 minutes a day. Continue vitamins. Return in 2 weeks OB check Additional Plan Follow Up: 2 Weeks (obc)
== END 2024-12-29 10:54 | disposition home or self-care (01) ==
LOC: HODSOBC 10:22
PROVIDERS: Supervising Provider Advanced Practice Midwife; Visit Provider Advanced Practice Midwife
DX: O09.93 Supervision of high risk pregnancy, unspecified, third trimester (principal); Z3A.32 32 weeks gestation of pregnancy
CPT/HCPCS: 99214; G0463

== ENCOUNTER 2025-01-13 11:27 | Outpatient (AMB) | payer MEDICAID, SELFPAY ==
--- NOTE | 2025-01-13 11:36 | OBCLNT_ITS ---
Vital Signs 01/13/25 11:37 Height 1.52 m Height Method Stated Weight 70.76 kg Weight Measurement Method Standing Scale BMI 30.6 BP 114/73 Blood Pressure Source Automatic Cuff Blood Pressure Location Left Upper Arm Position Sitting Respiration 16 Pulse 99 Pulse Source Monitor Temp 97.2 F Temp Source Oral Pulse Oximetry (%) 98 Oxygen Delivery Method Room Air Allergies/Home Meds Allergies & Medications Allergies No Known Allergies Allergy (Verified 01/13/25 11:37) Medication Reconciliation vitamin-ferrous fumarate 28 mg iron-folic acid 800 mcg tablet ( Vitamins with Minerals) 1 tab PO QDAY #60 tabs 11/16/24 [Rx Confirmed 01/13/25] Intake Visit Data Collection New Patient or Established: Established Patient (seen at [facility] within 3 years) Reason for Visit:: OBC Seen by Clinical Staff ONLY (RN/MA): No Stock Transfer Clerk Required: No Do You Feel Safe at Home: Yes Authorities Contacted: N/A PCP or OBGYN visit in last 3 months: Yes Date of Last PCP or OBGYN visit: 12/29/24 Hx Now: Yes Are you currently on any form of Control: No Pain Present Currently: No Pain Scale Used: Campos-Saba/Numerical Pain scale:: 0 Smoking Status Smoking Status: Never smoker Questionnaires Covid-19 Vaccine Questionnaire Has patient been vacinated for Covid-19 Have you been vacinated for Covid-19: Yes PHQ-9 PHQ-2 Over the last 2 weeks, how often have you been bothered by any of the following problems? 1. Little interest or pleasure in doing things: not at all 2. Feeling down, depressed, or hopeless: not at all Total score: 0 PHQ-9 3. Trouble falling or staying asleep, or sleeping too much: Not at all 4. Feeling tired or having little energy: Not at all 5. Poor appetite or overeating: Not at all 6. Feeling bad about yourself - or that you are a failure or have let yourself or your family down: Not at all 7. Trouble concentrating on things, such as reading the newspaper or watching television: Not at all 8. Moving or speaking so slowly that other people could have noticed? - Or the opposite - being so fidgety or restless that you have been moving around a lot more than usual: not at all 9. Thoughts that you would be better off or of hurting yourself in some way: Not at all Total score: 0 If you checked off any problems, how difficult have these problems made it for you to do your work, take care of things at home, or get along with other people?: not difficult at all Source: Developed by Drs. Rolly Maradiaga, Sara Maldonado, Aung Nunn and colleagues, with an educational emely from [employer]. 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 No pTL or ob complaints. Denies LOF.VB.UC, fetus active. needs refill PNV. unable to go to [facility], no transportation, Sono today at [facility] [place], refill pnv. OB panel, NIPT and carrier, 1 hr gtt/tsh. discuss PTL precaution, hydrate. rtc 4 week obc 12/15/24 -?-?-?-?-?-?-?-?-?-?-?-?- 30w 1d 68.209 kg 107/70 absent unknown 30 136 active Fetus active. Denies labor complaints. Patient would like Tdap. Reports good movement. Denies leaking. Denies bleeding. And patient agrees to [facility] appointment Tdap. Third tri mester labs. Schedule maternal- medicine appointment with Dr. Rubin. Increase fluids. Discussed labor precautions. Return in 2 weeks at which discussed tea Tdap. 3 hr gtt labs. [place] maternal- medicine appointment with Dr. Rubin. Increase fluids. Discussed labor precautions. Return in 2 weeks at which discussed TDAP today 12/29/24 -?-?-?-?-?-?-?-?-?-?--?-?- 32w 1d 70.023 kg 112/74 absent unknown 32 135 active Reports good movement. Fetus is active. Denies any signs symptoms of labor. Denies bleeding, contractions, leakage Discussed diet and weight. Increase activity. Patient declined ultrasound with maternal- medicine. So scheduled with [facility] for growth ultrasound. Discussed labor precautions. Increase fluids. Continue prenatals. Limit carbs and sugary foods and return in 2 weeks OB check. 01/13/25 -?-?-?-?-?-?-?-?-?-?-?-?- 34w 2d 70.76 kg 114/73 absent cephalic 34 135 active Fetus active. Denies labor complaints. Denies leaking, denies bleeding, denies contractions. Increase fluids. Discussed labor precautions. Discussed kick count. ER precautions given. Return in a week for OB check and GBS RAIN Calculator Estimated Delivery Date Method Current WG Current Estimate 02/22/25 LMP (Certain) 34w 2d Other Estimates 02/27/25 Ultrasound #1 33w 4d Notes Visit Date: 12/29/24 Last Updated by: Judith Maguire CNM 24 yo . LMP 05/18/24: edc: 02/22/25 final: RAIN: 02/22/25 1 hr gtt: 156/3 hr gtt wnl Visit Date: 12/15/24 Last Updated by: Judith Maguire CNM 1 hr gtt: 156, A1: 5.4, NIPT-, CF/SMA-, O+.abs-, rpr;;nr, rub imm, HBSAG-,HIV-,HC-, GC/CT-, .3, UTI tx with macrobid Visit Date: 11/16/24 Last Updated by: Judith Maguire CNM 24 yo . lmp 05/18/24. EDC: 02/22/25 Office Procedures OBC Clinic LOC & Office Proc's Nursing/Assessment Patient Status: Established Patient OB Clinic Nursing Assessment: Medication Reconciliation, Update PMH in EMR and Vital Signs OB Clinic Coordination of Care: Education Complex Pt/Fam, Consent,records obtained, informed consent, Lab and Imaging orders, Results/Orders obtained and Staff clarify orders Special Needs: Heart tones Established Patient Charge Established Patient Point Assignment: 115 Established Patient Point Charge: EP Level 3 (80-115) Assessment & Plan Diagnosis / Problem List (1) Encounter for supervision of high risk in third trimester, antepartum: Status: Acute Plan Discussed labor precautions. Kick count twice a day. Increase fluids. Continue prenatals. Discussed danger signs symptoms and ER precautions. Return in a week for OB check and GBS Additional Plan Follow Up: 1 Week (OBC)
[2025-01-13 11:37] VITALS: BP 114/73; PULSE 99; RESP 16; TEMP 36.2; O2SAT 98; BMI 30.6
== END 2025-01-13 11:38 | disposition home or self-care (01) ==
LOC: HODSOBC 11:27
PROVIDERS: Supervising Provider Advanced Practice Midwife; Visit Provider Advanced Practice Midwife
DX: O09.93 Supervision of high risk pregnancy, unspecified, third trimester (principal); Z3A.34 34 weeks gestation of pregnancy
CPT/HCPCS: 99213; G0463

== ENCOUNTER 2025-01-22 09:41 | Outpatient (AMB) | payer MEDICAID, SELFPAY ==
[2025-01-22 09:51] VITALS: BP 119/78; PULSE 84; RESP 17; TEMP 36.2; O2SAT 98; BMI 31.2
--- NOTE | 2025-01-22 09:51 | OBCLNT_ITS ---
Vital Signs 01/22/25 09:51 Height 1.52 m Height Method Stated Weight 72.235 kg Weight Measurement Method Standing Scale BMI 31.2 BP 119/78 Blood Pressure Source Automatic Cuff Blood Pressure Location Right Upper Arm Position Sitting Respiration 17 Pulse 84 Pulse Source Monitor Temp 97.1 F Temp Source Temporal Artery Scan Pulse Oximetry (%) 98 Oxygen Delivery Method Room Air Allergies/Home Meds Allergies & Medications Allergies No Known Allergies Allergy (Verified 01/22/25 09:55) Medication Reconciliation vitamin-ferrous fumarate 28 mg iron-folic acid 800 mcg tablet ( Vitamins with Minerals) 1 tab PO QDAY #60 tabs 11/16/24 [Rx Confirmed 01/22/25] Intake Visit Data Collection New Patient or Established: Established Patient (seen at [facility] within 3 years) Reason for Visit:: OBC Seen by Clinical Staff ONLY (RN/MA): No Ip Litigation Associate Required: No Do You Feel Safe at Home: Yes Authorities Contacted: N/A PCP or OBGYN visit in last 3 months: Yes Date of Last PCP or OBGYN visit: 01/13/25 Hx Now: Yes Are you currently on any form of Control: No Pain Present Currently: No Pain Scale Used: Campos-Saba/Numerical Smoking Status Smoking Status: Never smoker Questionnaires Covid-19 Vaccine Questionnaire Has patient been vacinated for Covid-19 Have you been vacinated for Covid-19: Yes PHQ-9 PHQ-2 Over the last 2 weeks, how often have you been bothered by any of the following problems? 1. Little interest or pleasure in doing things: not at all 2. Feeling down, depressed, or hopeless: not at all Total score: 0 PHQ-9 3. Trouble falling or staying asleep, or sleeping too much: Not at all 4. Feeling tired or having little energy: Not at all 5. Poor appetite or overeating: Not at all 6. Feeling bad about yourself - or that you are a failure or have let yourself or your family down: Not at all 7. Trouble concentrating on things, such as reading the newspaper or watching television: Not at all 8. Moving or speaking so slowly that other people could have noticed? - Or the opposite - being so fidgety or restless that you have been moving around a lot more than usual: not at all 9. Thoughts that you would be better off or of hurting yourself in some way: Not at all Total score: 0 If you checked off any problems, how difficult have these problems made it for you to do your work, take care of things at home, or get along with other people?: not difficult at all Source: Developed by Drs. Rolly Maradiaga, Sara Maldonado, Aung Nunn and colleagues, with an educational emely from [employer]. 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 No pTL or ob complaints. Denies LOF.VB.UC, fetus active. needs refill PNV. unable to go to [facility], no transportation, Sono today at [facility], refill pnv. OB panel, NIPT and carrier, 1 hr gtt/tsh. discuss PTL precaution, hydrate. rtc 4 week obc 12/15/24 -?-?-?-?-?-?-?-?-?-?-?-?- 30w 1d 68.209 kg 107/70 absent unknown 30 136 active Fetus active. Denies labor complaints. Patient would like Tdap. Reports good movement. Denies leaking. Denies bleeding. And patient agrees to [facility] appointment Tdap. Third tri mester labs. Schedule maternal- medicine appointment with Dr. Rubin. Increase fluids. Discussed labor precautions. Return in 2 weeks at which discussed tea Tdap. 3 hr gtt labs. Sche dule maternal- medicine appointment with Dr. Rubin. Increase fluids. Discussed labor precautions. Return in 2 weeks at which discussed TDAP today 12/29/24 -?-?-?-?-?-?-?-?-?-?-?-?- 32w 1d 70.023 kg 112/74 absent unknown 32 135 active Reports good movement. Fetus is active. Denies any signs symptoms of labor. Denies bleeding, contractions, leakage Discussed diet and weight. Increase activity. Patient declined ultrasound with maternal- medicine. So scheduled with [facility] for growth ultrasound. Discussed labor precautions. Increase fluids. Continue prenatals. Limit carbs and sugary foods and return in 2 weeks OB check. 01/13/25 -?-?-?-?-?-?-?-?-?-?-?-?- 34w 2d 70.76 kg 114/73 absent cephalic 34 135 active Fetus active. Denies labor complaints. Denies leaking, denies bleeding, denies contractions. Increase fluids. Discussed labor precautions. Discussed kick count. ER precautions given. Return in a week for OB check and GBS 01/22/25 -?-?-?-?-?-?-?-?-?-?-?-?- 35w 4d 72.235 kg 119/78 absent cephalic 35 135 active fetus active, deneis UC/VB/SROM. Return in a week OB check GBS today. Discussed labor precautions. Kick count twice a day. Increase fluids. Continue prenatals. Return in a week for OB check. Ultrasound for growth today. GBS today. Discussed labor precautions. Kick count twice a day. Increase fluids. Continue prenatals. Return in a week for OB check. Ultrasound for growth today. At [facility] image RAIN Calculator Estimated Delivery Date Method Current WG Current Estimate 02/22/25 LMP (Certain) 35w 4d Other Estimates 02/27/25 Ultrasound #1 34w 6d Notes Visit Date: 12/29/24 Last Updated by: Judith Maguire CNM 24 yo . LMP 05/18/24: edc: 02/22/25 final: RAIN: 02/22/25 1 hr gtt: 156/3 hr gtt wnl Visit Date: 12/15/24 Last Updated by: Judith Maguire CNM 1 hr gtt: 156, A1: 5.4, NIPT-, CF/SMA-, O+.abs-, rpr;;nr, rub imm, HBSAG-,HIV-,HC-, GC/CT-, .3, UTI tx with macrobid Visit Date: 11/16/24 Last Updated by: Judith Maguire CNM 24 yo . lmp 05/18/24. EDC: 02/22/25 Office Procedures OBC Clinic LOC & Office Proc's Nursing/Assessment Patient Status: Established Patient OB Clinic Nursing Assessment: Medication Reconciliation, Update PMH in EMR and Vital Signs OB Clinic Coordination of Care: Complex Care and Chronic Disease 1-5, Education Complex Pt/Fam, Consent,records obtained, informed consent, Lab and Imaging orders and Staff clarify orders Special Needs: Heart tones Miscellaneous Interventions: Culture Specimen Collection Established Patient Charge Established Patient Point Assignment: 150 Established Patient Point Charge: EP Level 4 (120-155) Assessment & Plan Diagnosis / Problem List (1) Encounter for supervision of high risk in third trimester, antepartum: Status: Acute Plan GBS today. Sono at [facility] for growth. Discussed labor precautions kick count. Increase fluids. Continue prenatals. Return in a week OB check Additional Plan Follow Up: 1 Week (obc)
== END 2025-01-22 10:29 | disposition home or self-care (01) ==
LOC: HODSOBC 09:41
PROVIDERS: Supervising Provider Advanced Practice Midwife; Visit Provider Advanced Practice Midwife
DX: O09.93 Supervision of high risk pregnancy, unspecified, third trimester (principal); Z3A.35 35 weeks gestation of pregnancy; Z36.85 Encounter for antenatal screening for Streptococcus B
CPT/HCPCS: 99214; G0463

== ENCOUNTER 2025-01-27 09:08 | Outpatient (AMB) | payer MEDICAID, SELFPAY ==
[2025-01-27 09:12] VITALS: BP 112/73; PULSE 95; RESP 17; TEMP 36.1; O2SAT 98; BMI 31.4
--- NOTE | 2025-01-27 09:12 | OBCLNT_ITS ---
Vital Signs 01/27/25 09:12 Height 1.52 m Height Method Stated Weight 72.745 kg Weight Measurement Method Standing Scale BMI 31.4 BP 112/73 Blood Pressure Source Automatic Cuff Blood Pressure Location Right Upper Arm Position Sitting Respiration 17 Pulse 95 Pulse Source Monitor Temp 96.9 F Temp Source Temporal Artery Scan Pulse Oximetry (%) 98 Oxygen Delivery Method Room Air Allergies/Home Meds Allergies & Medications Allergies No Known Allergies Allergy (Verified 01/22/25 09:55) Intake Visit Data Collection New Patient or Established: Established Patient (seen at [facility] within 3 years) Reason for Visit:: OBC Seen by Clinical Staff ONLY (RN/MA): No 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 1. Little interest or pleasure in doing things: not at all 2. Feeling down, depressed, or hopeless: not at all Total score: 0 PHQ-9 3. Trouble falling or staying asleep, or sleeping too much: Not at all 4. Feeling tired or having little energy: Not at all 5. Poor appetite or overeating: Not at all 6. Feeling bad about yourself - or that you are a failure or have let yourself or your family down: Not at all 7. Trouble concentrating on things, such as reading the newspaper or watching television: Not at all 8. Moving or speaking so slowly that other people could have noticed? - Or the opposite - being so fidgety or restless that you have been moving around a lot more than usual: not at all 9. Thoughts that you would be better off or of hurting yourself in some way: Not at all Total score: 0 If you checked off any problems, how difficult have these problems made it for you to do your work, take care of things at home, or get along with other people?: not difficult at all Source: Developed by Drs. Rolly Maradiaga, Sara Maldonado, Aung Nunn and colleagues, with an educational emely from [employer]. 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 No pTL or ob complaints. Denies LOF.VB.UC, fetus active. needs refill PNV. unable to go to [facility], no transportation, Sono today at [facility], refill pnv. OB panel, NIPT and carrier, 1 hr gtt/tsh. discuss PTL precaution, hydrate. rtc 4 week obc 12/15/24 -?-?-?-?-?-?-?-?-?-?-?-?- 30w 1d 68.209 kg 107/70 absent unknown 30 136 active Fetus active. Denies labor complaints. Patient would like Tdap. Reports good movement. Denies leaking. Denies bleeding. And patient agrees to [facility] appointment Tdap. Third tri mester labs. Schedule maternal- medicine appointment with Dr. Rubin. Increase fluids. Discussed labor precautions. Return in 2 weeks at which discussed tea Tdap. 3 hr gtt labs. Juan dule maternal- medicine appointment with Dr. Rubin. Increase fluids. Discussed labor precautions. Return in 2 weeks at which discussed TDAP today 12/29/24 -?-?-?-?-?-?-?-?-?-?-?-?- 32w 1d 70.023 kg 112/74 absent unknown 32 135 active Reports good movement. Fetus is active. Denies any signs symptoms of labor. Denies bleeding, contractions, leakage Discussed diet and weight. Increase activity. Patient declined ultrasound with maternal- medicine. So scheduled with [facility] for growth ultrasound. Discussed labor precautions. Increase fluids. Continue prenatals. Limit carbs and sugary foods and return in 2 weeks OB check. 01/13/25 -?-?-?-?-?-?-?-?-?-?-?-?- 34w 2d 70.76 kg 114/73 absent cephalic 34 135 active Fetus active. Denies labor complaints. Denies leaking, denies bleeding, denies contractions. Increase fluids. Discussed labor precautions. Discussed kick count. ER precautions given. Return in a week for OB check and GBS 01/22/25 -?-?-?-?-?-?-?-?-?-?-?-?- 35w 4d 72.235 kg 119/78 absent cephalic 35 135 active fetus active, deneis UC/VB/SROM. Return in a week OB check GBS today. Discussed labor precautions. Kick count twice a day. Increase fluids. Continue prenatals. Return in a week for OB check. Ultrasound for growth today. GBS today. Discussed labor precautions. Kick count twice a day. Increase fluids. Continue prenatals. Return in a week for OB check. Ultrasound for growth today. At [facility] image 01/27/25 -?--?-?-?-?-?-?-?-?-?-?-?- 36w 2d 72.745 kg 112/73 absent cephalic 36 135 active Fetus active per patient. Denies leaking, bleeding, contractions. No OB discomforts or complaints [facility] referral is pending. Patient has a referral approved. Discussed labor precautions and kick count. Discussed danger signs symptoms and ER precautions. Return precautions RAIN Calculator Estimated Delivery Date Method Current WG Current Estimate 02/22/25 LMP (Certain) 36w 2d Other Estimates 02/27/25 Ultrasound #1 35w 4d Notes Visit Date: 01/27/25 Last Updated by: Judith Maguire CNM 01/13: GBS- Visit Date: 12/29/24 Last Updated by: Judith Maguire CNM 24 yo . LMP 05/18/24: edc: 02/22/25 final: RAIN: 02/22/25 1 hr gtt: 156/3 hr gtt wnl Visit Date: 12/15/24 Last Updated by: Judith Maguire CNM 1 hr gtt: 156, A1: 5.4, NIPT-, CF/SMA-, O+.abs-, rpr;;nr, rub imm, HBSAG-,HIV-,HC-, GC/CT-, .3, UTI tx with macrobid Visit Date: 11/16/24 Last Updated by: Judith Maguire CNM 24 yo . lmp 05/18/24. EDC: 02/22/25 Office Procedures OBC Clinic LOC & Office Proc's Nursing/Assessment Patient Status: Established Patient OB Clinic Nursing Assessment: Medication Reconciliation, Update PMH in EMR and Vital Signs OB Clinic Coordination of Care: Complex Care and Chronic Disease 1-5, Education Complex Pt/Fam, Consent,records obtained, informed consent, Results/Orders obtained and Staff clarify orders Special Needs: Heart tones Established Patient Charge Established Patient Point Assignment: 125 Established Patient Point Charge: EP Level 4 (120-155) Assessment & Plan Diagnosis / Problem List (1) Encounter for supervision of high risk in third trimester, antepartum: Status: Acute Plan Reviewed labor precautions and kick count today. Discussed GBS results. Maternal- medicine appointment is pending. It was approved. Return in a week OB Additional Plan Follow Up: 1 Week (obc)
== END 2025-01-27 09:38 | disposition home or self-care (01) ==
LOC: HODSOBC 09:08
PROVIDERS: Supervising Provider Advanced Practice Midwife; Visit Provider Advanced Practice Midwife
DX: O09.93 Supervision of high risk pregnancy, unspecified, third trimester (principal); Z3A.36 36 weeks gestation of pregnancy
CPT/HCPCS: 99214; G0463

== ENCOUNTER 2025-02-05 11:59 | Observation (INO) | payer MEDICAID, SELFPAY ==
[2025-02-05] VITALS (48 sets, daily range): BP systolic 114; BP diastolic 78; PULSE 75–107; RESP 18–99; TEMP 36.9; O2SAT 97–100; BMI 30.6
[2025-02-05 13:41] LABS: Basophils # (Auto) 0.0 Thou/mm3 (0.0-0.2); Basophils % (Auto) 0 % (0-2.5); Eosinophils # (Auto) 0.1 Thou/mm3 (0.0-0.5); Eosinophils % (Auto) 1 % (0-10); Hematocrit 36.2 % (36.0-46.0); Hemoglobin 11.7 g/dL (12.0-16.0); Immature Granulocytes Auto 0.07 Thou/mm3 (0.00-0.00); Lymphocytes # (Auto) 1.2 Thou/mm3 (1.0-4.8); Lymphocytes % (Auto) 15 % (10-50); Mean Corpuscular HGB Conc 32.3 g/dl (31.0-37.0); Mean Corpuscular Hemoglobin 28.6 pg (25.0-35.0); Mean Corpuscular Volume 89 fL (80-100); Monocytes # (Auto) 0.5 Thou/mm3 (0.0-0.8); Monocytes % (Auto) 7 % (0-12); Neutrophils # (Auto) 6.4 Thou/mm3 (1.8-7.7); Neutrophils % (Auto) 77 % (37-80); Nucleated Red Blood Cell # 0.00 Thou/mm3 (0.00-0.00); Nucleated Red Blood Cell % 0 /100 WBC (0); Platelet Count 266 Thou/mm3 (140-440); RDW Standard Deviation 42.0 fL (36.4-46.3); Red Blood Count 4.09 Miln/mm3 (4.00-5.20); White Blood Count 8.3 Thou/mm3 (3.6-11.0)
[2025-02-05 14:07] LABS: Alanine Aminotransferase < 7 U/L (10-49); Albumin, Serum 3.8 gm/dL (3.5-5.0); Albumin/Globulin Ratio 1.7 (1.2-2.2); Alkaline Phosphatase 139 U/L (46-116); Anion Gap 12 (7-16); Aspartate Amino Transferase 14 U/L (0-34); BUN/Creatinine Ratio 10 Ratio (12-20); Bilirubin,Total 0.3 mg/dL (0.3-1.2); Blood Urea Nitrogen 5 mg/dL (9-23); Calcium 8.9 mg/dL (8.3-10.6); Calcium (Corrected) 9.1 mg/dL (8.5-10.1); Carbon Dioxide 20.0 mMol/L (20.0-31.0); Chloride 108 mMol/L (98-107); Creatinine (Component) 0.5 mg/dL (0.6-1.3); Estimated Creatinine Clearance 157.7 mL/min (>60); Globulin 2.2 gm/dL (2.3-3.5); Glucose 93 mg/dL (74-106); Osmolality,Calculated 276 (275-295); Potassium 3.7 mMol/L (3.4-5.1); Sodium 140 mMol/L (136-145); Total Protein 6.0 gm/dL (5.7-8.2); eGFR > 60 See Note
== END 2025-02-05 16:10 | disposition home or self-care (01) ==
PROVIDERS: Admitting Provider Advanced Practice Midwife; Visit Provider Advanced Practice Midwife
DX: O36.8130 Decreased fetal movements, third trimester, not applicable or unspecified (principal); Z3A.39 39 weeks gestation of pregnancy
CPT/HCPCS: 36415; 59025; 59899; 80053; 85025

== ENCOUNTER 2025-02-09 15:24 | Outpatient (AMB) | payer MEDICAID, SELFPAY ==
--- NOTE | 2025-02-09 15:31 | OBCLNT_ITS ---
Vital Signs 02/09/25 15:33 Weight 74.503 kg Weight Measurement Method Standing Scale BP 103/69 Blood Pressure Source Automatic Cuff Blood Pressure Location Left Upper Arm Position Sitting Respiration 16 Pulse 83 Pulse Source Monitor Temp 97.2 F Temp Source Oral Pulse Oximetry (%) 98 Oxygen Delivery Method Room Air Allergies/Home Meds Allergies & Medications Allergies No Known Allergies Allergy (Verified 02/09/25 15:34) Medication Reconciliation vitamin-ferrous fumarate 28 mg iron-folic acid 800 mcg tablet ( Vitamins with Minerals) 1 tab PO QDAY #60 tabs 11/16/24 [Rx Confirmed 02/09/25] Intake Visit Data Collection New Patient or Established: Established Patient (seen at [facility] within 3 years) Reason for Visit:: OBC Seen by Clinical Staff ONLY (RN/MA): No Gas Analyst Required: No Do You Feel Safe at Home: Yes Authorities Contacted: N/A PCP or OBGYN visit in last 3 months: Yes Date of Last PCP or OBGYN visit: 02/05/25 Hx Now: Yes Are you currently on any form of Control: No Pain Present Currently: No Pain Scale Used: Campos-Saba/Numerical Pain scale:: 0 Smoking Status Smoking Status: Never smoker Immunizations Flu Vaccine in the Last 12 Months: No Flu Vaccine Exclusion Criteria: No Exclusion Criteria Questionnaires Covid-19 Vaccine Questionnaire Has patient been vacinated for Covid-19 Have you been vacinated for Covid-19: Yes PHQ-9 PHQ-2 Over the last 2 weeks, how often have you been bothered by any of the following problems? 1. Little interest or pleasure in doing things: not at all 2. Feeling down, depressed, or hopeless: not at all Total score: 0 PHQ-9 3. Trouble falling or staying asleep, or sleeping too much: Not at all 4. Feeling tired or having little energy: Not at all 5. Poor appetite or overeating: Not at all 6. Feeling bad about yourself - or that you are a failure or have let yourself or your family down: Not at all 7. Trouble concentrating on things, such as reading the newspaper or watching television: Not at all 8. Moving or speaking so slowly that other people could have noticed? - Or the opposite - being so fidgety or restless that you have been moving around a lot more than usual: not at all 9. Thoughts that you would be better off or of hurting yourself in some way: Not at all Total score: 0 If you checked off any problems, how difficult have these problems made it for you to do your work, take care of things at home, or get along with other people?: not difficult at all Source: Developed by Drs. Rolly Maradiaga, Sara Maldonado, Aung Nunn and colleagues, with an educational emely from [employer]. 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 No pTL or ob complaints. Denies LOF.VB.UC, fetus active. needs refill PNV. unable to go to [facility], no transportation, Sono today at [facility], refill pnv. OB panel, NIPT and carrier, 1 hr gtt/tsh. discuss PTL precaution, hydrate. rtc 4 week obc 12/15/24 -?-?-?-?-?-?-?-?-?-?-?-?- 30w 1d 68.209 kg 107/70 absent unknown 30 136 active Fetus active. Denies labor complaints. Patient would like Tdap. Reports good movement. Denies leaking. Denies bleeding. And patient agrees to [facility] appointment Tdap. Third tri mester labs. Schedule maternal- medicine appointment with Dr. Rubin. Increase fluids. Discussed labor precautions. Return in 2 weeks at which discussed tea Tdap. 3 hr gtt labs. Sche dule maternal- medicine appointment with Dr. Rubin. Increase fluids. Discussed labor precautions. Return in 2 weeks at which discussed TDAP today 12/29/24 -?-?-?-?-?--?-?-?-?-?-?-?- 32w 1d 70.023 kg 112/74 absent unknown 32 135 active Reports good movement. Fetus is active. Denies any signs symptoms of labor. Denies bleeding, contractions, leakage Discussed diet and weight. Increase activity. Patient declined ultrasound with maternal- medicine. So scheduled with [facility] for growth ultrasound. Discussed labor precautions. Increase fluids. Continue prenatals. Limit carbs and sugary foods and return in 2 weeks OB check. 01/13/25 -?-?-?-?-?-?-?-?-?-?-?-?- 34w 2d 70.76 kg 114/73 absent cephalic 34 135 active Fetus active. Denies labor complaints. Denies leaking, denies bleeding, denies contractions. Increase fluids. Discussed labor precautions. Discussed kick count. ER precautions given. Return in a week for OB check and GBS 01/22/25 -?-?-?-?-?-?-?-?-?-?-?-?- 35w 4d 72.235 kg 119/78 absent cephalic 35 135 active fetus active, deneis UC/VB/SROM. Return in a week OB check GBS today. Discussed labor precautions. Kick count twice a day. Increase fluids. Continue prenatals. Return in a week for OB check. Ultrasound for growth today. GBS today. Discussed labor precautions. Kick count twice a day. Increase fluids. Continue prenatals. Return in a week for OB check. Ultrasound for growth today. At [facility] image 01/27/25 -?-?-?-?-?-?-?-?-?-?-?-?- 36w 2d 72.745 kg 112/73 absent cephalic 36 135 active Fetus active per patient. Denies leaking, bleeding, contractions. No OB discomforts or complaints [facility] referral is pending. Patient has a referral approved. Discussed labor precautions and kick count. Discussed danger signs symptoms and ER precautions. Return precautions 02/09/25 -?-?-?-?-?-?-?-?-?-?-?-?- 38w 1d 74.503 kg 103/69 occasional cephalic 38 156 active Patient was seen at [facility] labor and delivery and discharged home. She was seen because of discomforts of . Reports good movement. Occasional contraction. Denies leaking or Reviewed labor precautions. Kick count twice a day. Comfort measures for early labor. I discussed PIH signs symptoms and precautions. Danger signs symptoms return a week OB check RAIN Calculator Estimated Delivery Date Method Current WG Current Estimate 02/22/25 LMP (Certain) 38w 1d Other Estimates 02/27/25 Ultrasound #1 37w 3d Notes Visit Date: 02/09/25 Last Updated by: Judith Maguire CNM SONO 01/29: iup 34W3, efw: 45%, shey: 22 Visit Date: 01/27/25 Last Updated by: Judith Maguire CNM 01/13: GBS- Visit Date: 12/29/24 Last Updated by: Judith Maguire CNM 24 yo . LMP 05/18/24: edc: 02/22/25 final: RAIN: 02/22/25 1 hr gtt: 156/3 hr gtt wnl Visit Date: 12/15/24 Last Updated by: Judith Maguire CNM 1 hr gtt: 156, A1: 5.4, NIPT-, CF/SMA-, O+.abs-, rpr;;nr, rub imm, HBSAG-,HIV-,HC-, GC/CT-, .3, UTI tx with macrobid Visit Date: 11/16/24 Last Updated by: Judith Maguire CNM 24 yo . lmp 05/18/24. EDC: 02/22/25 Office Procedures OBC Clinic LOC & Office Proc's Nursing/Assessment Patient Status: Established Patient OB Clinic Nursing Assessment: Medication Reconciliation, Update PMH in EMR and Vital Signs OB Clinic Coordination of Care: Consent,records obtained, informed consent, Education Simp Pt/Fam, Lab and Imaging orders, Results/Orders obtained and Staff clarify orders Special Needs: Heart tones Established Patient Charge Established Patient Point Assignment: 110 Established Patient Point Charge: EP Level 3 (80-115) Assessment & Plan Diagnosis / Problem List (1) Encounter for supervision of high risk in third trimester, antepartum: Status: Acute Plan Discussed labor precautions. Discussed ER precautions. Discussed PIH signs and return parameters. Kick count twice a day. Comfort measures for early labor. And return in a week OB check Additional Plan Follow Up: 1 Week (OBC)
[2025-02-09 15:33] VITALS: BP 103/69; PULSE 83; RESP 16; TEMP 36.2; O2SAT 98
== END 2025-02-09 15:57 | disposition home or self-care (01) ==
LOC: HODSOBC 15:24
PROVIDERS: Supervising Provider Advanced Practice Midwife; Visit Provider Advanced Practice Midwife
DX: O09.93 Supervision of high risk pregnancy, unspecified, third trimester (principal); Z3A.38 38 weeks gestation of pregnancy
CPT/HCPCS: 99213; G0463

== ENCOUNTER 2025-02-26 12:10 | Inpatient (IN) | payer MEDICAID, SELFPAY ==
[2025-02-26] VITALS (116 sets, daily range): BP systolic 101–147; BP diastolic 55–86; PULSE 72–150; RESP 17–100; TEMP 36.7–37.7; O2SAT 91–100; BMI 31.5; BMI 31.4
--- NOTE | 2025-02-26 12:33 | XR_ITS ---
Examination: Complete OB ultrasound greater than 14 weeks Date and time of exam: February 26, 2025, 1323 hours INDICATIONS: Labor evaluation today, late to care Findings: Viable intrauterine single fetus with single amniotic sac presentation cephalic spine maternal left Cardiac motion 145 bpm Placenta anterior grade 3 Local cord insertion seen 3 vessel Amniotic fluid index 3.4 cm Cervix 3.5 cm Ovaries obscured by bowel gas. Composite estimated gestational age based on BPD, head circumference, abdominal circumference, femur length is 36 weeks 5 days Estimated weight 3005 g. Survey of intracranial anatomy, spinal anatomy, abdominal anatomy, four-chamber heart performed with no abnormalities identified. Impression: Viable intrauterine gestation cephalic presentation Amniotic fluid index 3.4 cm.
[2025-02-26 13:28] LABS: Basophils # (Auto) 0.0 Thou/mm3 (0.0-0.2); Basophils % (Auto) 0 % (0-2.5); Eosinophils # (Auto) 0.0 Thou/mm3 (0.0-0.5); Eosinophils % (Auto) 0 % (0-10); Hematocrit 40.0 % (36.0-46.0); Hemoglobin 13.3 g/dL (12.0-16.0); Immature Granulocytes Auto 0.07 Thou/mm3 (0.00-0.00); Lymphocytes # (Auto) 1.5 Thou/mm3 (1.0-4.8); Lymphocytes % (Auto) 14 % (10-50); Mean Corpuscular HGB Conc 33.3 g/dl (31.0-37.0); Mean Corpuscular Hemoglobin 29.4 pg (25.0-35.0); Mean Corpuscular Volume 88 fL (80-100); Monocytes # (Auto) 0.5 Thou/mm3 (0.0-0.8); Monocytes % (Auto) 5 % (0-12); Neutrophils # (Auto) 8.4 Thou/mm3 (1.8-7.7); Neutrophils % (Auto) 80 % (37-80); Nucleated Red Blood Cell # 0.00 Thou/mm3 (0.00-0.00); Nucleated Red Blood Cell % 0 /100 WBC (0); Platelet Count 281 Thou/mm3 (140-440); RDW Standard Deviation 42.5 fL (36.4-46.3); Red Blood Count 4.53 Miln/mm3 (4.00-5.20); White Blood Count 10.5 Thou/mm3 (3.6-11.0)
[2025-02-26] MEDS: RINGERS LACTATED 1000 ML 1,000 ML 100 ML IV (14:14)
[2025-02-26 14:40] LABS: Syphilis Nonreactive (Nonreactive)
[2025-02-26] MEDS: OXYTOCIN in NS 30 units 30 UNIT/500 ML BAG IV (15:47)
[2025-02-26] MEDS: METHYLERGONOVINE INJ 0.2 MG/ML VIAL IM (20:22)
[2025-02-26] MEDS: LIDOCAINE HCL 1% 20 ML VIAL INFL (20:23)
[2025-02-26] MEDS: BENZO/LANO/ALOE (Dermoplast) 60 GM CAN 1 SPRAY TOP (20:23)
[2025-02-26] MEDS: OXYTOCIN in NS 20 units 20 UNIT/1,000 ML BAG 125 UNIT IV (20:24)
[2025-02-26] MEDS: MINERAL OIL 30 ML UDC TOP (20:25)
[2025-02-26 20:29] LABS: Amphetamine/Metham Scrn,Ur OB Negative (Negative); Benzoylecgonine Screen, Ur OB Negative (Negative); Opiate Screen,Urine OB Negative (Negative); THC Screen,Urine OB Negative (Negative)
--- NOTE | 2025-02-26 20:34 | ESHP_ITS ---
Documentation for date of: 02/26/25 OB Labor/Induct. HPI History of Present Illness Chief complaint: Rupture of membranes : 2 Para: 1 Term pregnancies: 1 pregnancies: 0 Living children: 1 History of Abortions: Spontaneous and Elective: 0 History of Vaginal deliveries: 1 History of sections: No History of : No Date of last menstrual period: 05/18/24 RAIN: 02/22/25 Gestational Age (weeks): 40 Gestational Age (days): 4 Gestational age based on last menstrual period: 40 History of present illness: Patient is a 24-year-old 2 para 1-0-0-1 at 40 weeks and 4 days who presented to labor and delivery triage with contractions as well as leakage of fluid. On examination she was noted to have gross rupture of membranes. Rupture of membranes was confirmed through gross pooling. Patient was having contractions every 3 to 5 minutes. She denied any vaginal bleeding and reported adequate movements. She received care at the [facility]. Her labs were reviewed as scanned in. History of Present Dating criteria: LMP confirmed by 1st trimester US Adequate Care: Yes Labs Labs: Positive: Rubella Titre, Negative: RPR, Hepatitis B, HIV, Chlamydia, Gonorrhea and Group Beta Strep and Unknown: Herpes Type 1, Herpes Type 2 and Covid-19 Past Medical History Surgical History SURGICAL: Negative Section Meds Home Medications and Allergies Allergies Allergy/AdvReac Type Severity Reaction Status Date / Time No Known Allergies Allergy Verified 02/26/25 12:21 OB Exam Physical Exam Vital signs: Temp Pulse Resp BP Pulse Ox O2 Del Method 98.1 F 127 H 20 109/55 L 100 Room Air 02/26/25 16:45 02/26/25 20:22 02/26/25 16:45 02/26/25 20:22 02/26/25 20:14 02/26/25 16:45 Constitutional Constitutional: no acute distress Routine HEENT Exam Head: Present normocephalic and atraumatic Eye: Present EOMI and PERRL ENT: Present mucous membranes moist Routine Neck Exam Neck: Present supple and trachea midline Routine Cardiovascular Exam Cardiovascular: Present RRR Routine Abdominal Exam Abdominal: Present soft and normoactive bowel sounds Detailed Labor and Delivery Exam Dilation (cm): 1 Effacement (%): 70 Cervix position: mid station: -3 Consistency: medium Presentation: Vertex Membranes: ruptured Amniotic fluid: clear Baseline heart rate: 135 monitor accelerations: 15x15 monitor decelerations: Early detention variability: Average (6-10) Contraction frequency (min): 10 Routine Extremities Exam Extremities: Present full ROM Routine Skin Exam Skin: Present intact, dry and warm Routine Neurological Exam Neurological: Present alert, oriented X3 and CN II-XII intact Routine Psychiatric Exam Psychiatric: Present normal affect and normal thought process OB Results Labs 02/26/25 12:55 Labs: Short CBC 02/26/25 Range/Units 12:55 WBC 10.5 (3.6-11.0) Thou/mm3 Hgb 13.3 (12.0-16.0) g/dL Hct 40.0 (36.0-46.0) % Plt Count 281 (140-440) Thou/mm3 OB Assessment & Plan Assessment and Plan (1) Spontaneous rupture of membranes: Status: Acute Assessment and plan: Admit to inpatient status for augmentation/induction IV access, LR at 125 cc/h, labs to include CBC type and screen RPR Continuous maternal monitoring Complete OB ultrasound for estimated weight and presentation Augmentation with oxytocin per protocol Group B strep negative Pain management as per unit protocol Anticipate vaginal delivery
--- NOTE | 2025-02-26 20:34 | PD.LDDELS ---
Vacuum Assisted Delivery General Patient Counseled by physician:: Yes Informed consent to patient:: Yes Estimated weight:: 3175.147 g Cervical dilation:: fully dilated station:: +2 position:: JAMIE Molding:: No Caput:: No Vacuum Application Vacuum type:: Mityvac Vacuum application:: flexing median Cup Placement Flexion point identified:: Yes Cup approp. for head position:: Yes Maternal tissue excluded:: Yes Vacuum Procedure Number of pulls (contractions):: 1 Number of pop-offs:: 0 Recommended range maintained:: Yes Advancement made each pull:: Yes Vacuum successful:: Yes Immediate Evaluation Immediate assessment:: no apparent injury Data (Gong) Data Hx Section: No : 2 Term: 1 : 0 Livin Abortions: Spontaneous & Theraputic: 0 Delivery Data (Gong) Labor Data Initiation of labor: Augmentation Induction/Augmentation Agent: Pitocin ROM date: 02/26/25 ROM time: 08:00 Amniotic membrane rupture type: Spontaneous Amniotic fluid description: Clear Delivery Data Onset of labor date: 02/26/25 Onset of labor time: 15:00 Complete dilation date: 02/26/25 Complete dilation time: 19:40 Bradford delivery date: 02/26/25 Bradford delivery time: 20:17 Placenta delivery date: 02/26/25 Placenta delivery time: 20:18 Stage 1 total time: Labor - Stage 1 Duration 4 hours and 40 minutes Delivered by: eunice Delivery nurse: rodrigo roman rn. Neworn nurse: damian mckeon rn. Sales Ambassador at delivery: Yes (Dr. velasco) Support person(s) at delivery: Yoel oshea RN, Linda Luu RNC. Other staff at delivery: patient's mother in law. Delivery Method Delivery method: Operative Vaginal Delivery Presentation: Vertex Anesthesia Type Anesthesia Type: Local Placenta Placenta delivery description: Spontaneous Cord blood sent to lab: Yes cord blood collection: Cord Blood Type Episiotomy Episiotomy description: Right Mediolateral EBL Estimated blood loss (ml): 300 Umbilical Cord cord description: 3 Vessels Additional Procedures Patient started pushing spontaneously when she was 9 cm dilated. At the time of my initial exam she was fully dilated with station at -2. The bladder was noted to be full and it was emptied using a straight catheter. She will continue to push but her pushing was ineffective. Patient was counseled that baby was having recurrent deep variables and late decelerations while pushing and that we needed to expedite delivery. She stated understanding and consented to episiotomy and vacuum delivery. A right mediolateral episiotomy was performed after infiltrating local anesthetic. The mighty VAC vacuum was applied to the vertex at the flexion point and delivery was accomplished with 1 pull without any pop-off's. No maternal injury was noted other than the episiotomy. The fetus was handed over to the team. Data (Gong) Data 's gender: Male Identification band number: [id number] weight (gms): 2980 g Weight (pounds): 6 lbs and 9.1 ozs 1 minute: 8 5 minutes: 9
[2025-02-26] MEDS: TRANEXAMIC ACID 1,000 MG IVPB 1,000 MG/100 ML BAG 200 MG IV (20:36)
[2025-02-26] MEDS: IBUPROFEN TAB 400 MG TABLET 800 MG PO (20:36)
[2025-02-26] MEDS: ceFAZolin/D5W 2 GM IV 2 GM/100 ML BAG IV (21:07)
[2025-02-27 00:08] VITALS: BP 103/68; PULSE 103; RESP 22; TEMP 37.9; O2SAT 96
[2025-02-27] MEDS: ACETAMINOPHEN IVPB 1,000 MG/100 ML VIAL 250 MG IV (00:34)
[2025-02-27 04:00] VITALS: BP 106/59; PULSE 79; RESP 21; TEMP 36.9; O2SAT 97
[2025-02-27] MEDS: IBUPROFEN TAB 400 MG TABLET 800 MG PO (05:38)
[2025-02-27] MEDS: ceFAZolin/D5W 2 GM IV 2 GM/100 ML BAG IV ×3 (05:38→21:53)
[2025-02-27 07:32] LABS: Basophils # (Auto) 0.0 Thou/mm3 (0.0-0.2); Basophils % (Auto) 0 % (0-2.5); Eosinophils # (Auto) 0.0 Thou/mm3 (0.0-0.5); Eosinophils % (Auto) 0 % (0-10); Hematocrit 31.4 % (36.0-46.0); Hemoglobin 10.5 g/dL (12.0-16.0); Immature Granulocytes Auto 0.13 Thou/mm3 (0.00-0.00); Lymphocytes # (Auto) 2.2 Thou/mm3 (1.0-4.8); Lymphocytes % (Auto) 12 % (10-50); Mean Corpuscular HGB Conc 33.4 g/dl (31.0-37.0); Mean Corpuscular Hemoglobin 29.9 pg (25.0-35.0); Mean Corpuscular Volume 90 fL (80-100); Monocytes # (Auto) 1.1 Thou/mm3 (0.0-0.8); Monocytes % (Auto) 6 % (0-12); Neutrophils # (Auto) 14.8 Thou/mm3 (1.8-7.7); Neutrophils % (Auto) 81 % (37-80); Nucleated Red Blood Cell # 0.00 Thou/mm3 (0.00-0.00); Nucleated Red Blood Cell % 0 /100 WBC (0); Platelet Count 235 Thou/mm3 (140-440); RDW Standard Deviation 43.4 fL (36.4-46.3); Red Blood Count 3.51 Miln/mm3 (4.00-5.20); White Blood Count 18.2 Thou/mm3 (3.6-11.0)
[2025-02-27 08:00] VITALS: BP 96/60; RESP 18; TEMP 36.8; O2SAT 97
--- NOTE | 2025-02-27 08:42 | ESPR_ITS ---
Subjective Subjective Interval history: Delivery type: Vacuum-assisted vaginal delivery Patient doing well this morning. No acute complaints. Ambulating, tolerating p.o., and voiding without difficulty. HTN/Pre-E screen negative: No CP, SOB, CASEY, visual changes, RUQ pain. : Yes Lochia: diminishing Bowel: Flatus + / BM + UOP: Voiding freely Exam Vital Signs Temp Pulse Resp BP Pulse Ox O2 Del Method 98.4 F 79 21 H 106/59 L 97 Room Air 02/27/25 04:00 02/27/25 04:00 02/27/25 04:00 02/27/25 04:00 02/27/25 04:00 02/27/25 04:00 Constitutional Constitutional: no acute distress Routine HEENT Exam Head: Present normocephalic and atraumatic Eye: Present EOMI and PERRL ENT: Present mucous membranes moist Routine Neck Exam Neck: Present supple and trachea midline Routine Respiratory Exam Respiratory: Present chest non-tender, lungs clear, normal breath sounds and no resp distress Routine Cardiovascular Exam Cardiovascular: Present RRR Routine Abdominal Exam Abdominal: Present soft and normoactive bowel sounds Routine Extremities Exam Extremities: Present full ROM Routine Skin Exam Skin: Present intact, dry and warm Routine Neurological Exam Neurological: Present alert, oriented X3 and CN II-XII intact Routine Psychiatric Exam Psychiatric: Present normal affect and normal thought process Objective Labs 02/27/25 07:05 Labs: Laboratory Results - last 24 hr 02/26/25 02/26/25 02/27/25 12:55 17:35 07:05 WBC 10.5 18.2 H D RBC 4.53 3.51 L Hgb 13.3 10.5 L D Hct 40.0 31.4 L MCV 88 90 MCH 29.4 29.9 MCHC 33.3 33.4 RDW Std Deviation 42.5 43.4 Plt Count 281 235 D Neut % (Auto) 80 81 H Lymph % (Auto) 14 12 Alexander % (Auto) 5 6 Eos % (Auto) 0 0 Baso % (Auto) 0 0 Neut # (Auto) 8.4 H 14.8 H Lymph # (Auto) 1.5 2.2 Alexander # (Auto) 0.5 1.1 H Eos # (Auto) 0.0 0.0 Baso # (Auto) 0.0 0.0 Immature Gran # (Auto) 0.07 H 0.13 H Absolute Nucleated RBC 0.00 0.00 Immature Gran % 1 H 1 H Nucleated RBC % 0 0 Urine Opiates Screen Negative U Amphetamin/Meth Scrn Negative U Cocaine Metab Screen Negative U Marijuana (THC) Screen Negative Syphilis Serology Nonreactive Blood Type O Positive Antibody Screen NEGATIVE Blood Bank Wristband ID Yes Assessment & Plan Problem List (1) Spontaneous rupture of membranes: Status: Acute (2) Vacuum-assisted vaginal delivery: Status: Acute Assessment and plan: 1. Continue routine /post-op care 2. Labs reviewed, cbc appropriate 3. Remove dressing/Collins 4. Encourage to ambulate, shower 5. Encourage PO intake, breast feeding 6. Patient delivered in the late evening, anticipate discharge home tomorrow Time Spent With Patient Time: Total time spent is greater than 50% in coordination of care (as documented) at patient's floor/unit and/or counseling patient:
[2025-02-27] MEDS: DOCUSATE SOD 100 MG CAPSULE PO (09:59)
[2025-02-27] MEDS: BENZO/LANO/ALOE (Dermoplast) 60 GM CAN 1 SPRAY TOP (11:45)
[2025-02-27 12:00] VITALS: BP 109/72; PULSE 89; RESP 18; TEMP 37.1; O2SAT 98
[2025-02-27 16:00] VITALS: BP 101/66; PULSE 78; RESP 18; TEMP 36.5; O2SAT 97
[2025-02-27] MEDS: ACETAMINOPHEN 325 MG TABLET 650 MG PO (16:03)
[2025-02-27] MEDS: HYDROcodone/APAP 5/325 TABLET 1 TAB PO (18:09)
[2025-02-27 20:00] VITALS: BP 111/72; PULSE 81; RESP 16; TEMP 36.8; O2SAT 98
[2025-02-28 03:13] VITALS: BP 94/60; PULSE 81; RESP 16; TEMP 36.5; O2SAT 98
[2025-02-28] MEDS: IBUPROFEN TAB 400 MG TABLET 800 MG PO ×2 (03:19→16:27)
--- NOTE | 2025-02-28 05:58 | PD.LDPPPRG ---
Subjective Subjective Interval history: Delivery type: Vacuum-assisted vaginal delivery Patient doing well this morning. No acute complaints. Ambulating, tolerating p.o., and voiding without difficulty. HTN/Pre-E screen negative: No CP, SOB, CASEY, visual changes, RUQ pain. : Yes Lochia: diminishing Bowel: Flatus + / BM + UOP: Voiding freely Exam Vital Signs Temp Pulse Resp BP Pulse Ox O2 Del Method 97.7 F 81 16 94/60 98 Room Air 02/28/25 03:13 02/28/25 03:13 02/28/25 03:13 02/28/25 03:13 02/28/25 03:13 02/28/25 03:13 Constitutional Constitutional: no acute distress Routine HEENT Exam Head: Present normocephalic and atraumatic Eye: Present EOMI and PERRL ENT: Present mucous membranes moist Routine Neck Exam Neck: Present supple and trachea midline Routine Respiratory Exam Respiratory: Present chest non-tender, lungs clear, normal breath sounds and no resp distress Routine Cardiovascular Exam Cardiovascular: Present RRR Routine Abdominal Exam Abdominal: Present soft and normoactive bowel sounds Routine Extremities Exam Extremities: Present full ROM Routine Skin Exam Skin: Present intact, dry and warm Routine Neurological Exam Neurological: Present alert, oriented X3 and CN II-XII intact Routine Psychiatric Exam Psychiatric: Present normal affect and normal thought process Objective Labs 02/27/25 07:05 Labs: Laboratory Results - last 24 hr 02/27/25 07:05 WBC 18.2 H D RBC 3.51 L Hgb 10.5 L D Hct 31.4 L MCV 90 MCH 29.9 MCHC 33.4 RDW Std Deviation 43.4 Plt Count 235 D Neut % (Auto) 81 H Lymph % (Auto) 12 [place] % (Auto) 6 Eos % (Auto) 0 Baso % (Auto) 0 Neut # (Auto) 14.8 H Lymph # (Auto) 2.2 [place] # (Auto) 1.1 H Eos # (Auto) 0.0 Baso # (Auto) 0.0 Immature Gran # (Auto) 0.13 H Absolute Nucleated RBC 0.00 Immature Gran % 1 H Nucleated RBC % 0 Assessment & Plan Problem List (1) Spontaneous rupture of membranes: Status: Acute (2) Vacuum-assisted vaginal delivery: Status: Acute Assessment and plan: PPD/POD#2 1. Continue routine care 2. Transition to PO meds. 3. Encourage to ambulate/ breast-feed 4. Anticipate discharge home today. Time Spent With Patient Time: Total time spent is greater than 50% in coordination of care (as documented) at patient's floor/unit and/or counseling patient:
--- NOTE | 2025-02-28 05:59 | PD.LDDS ---
DS: Providers Provider Date of admission: 02/26/25 12:34 Primary care physician: Physician No Primary/Family Admitting Provider: Howard Norwood MD Attending Provider on Admission: Howard Norwood MD Consults: 02/26/25 20:59 Referral Routine Comment: Attending Provider on DC: Howard Norwood MD Discharging Provider: Howard Norwood MD DS: Diagnosis Discharge Diagnosis (1) Vacuum-assisted vaginal delivery: Status: Acute (2) Spontaneous rupture of membranes: Status: Acute Problem List Completed Was Problem List Reviewed/Reconciled?: Yes Summary/Hosp Course Brief History: Patient is a 24-year-old 2 para 1-0-0-1 at 40 weeks and 4 days who presented to labor and delivery triage with contractions as well as leakage of fluid. On examination she was noted to have gross rupture of membranes. Rupture of membranes was confirmed through gross pooling. Patient was having contractions every 3 to 5 minutes. She denied any vaginal bleeding and reported adequate movements. She received care at the [facility] clinic. Her labs were reviewed as scanned in. Peripartum Data Delivery Method: Operative Vaginal Delivery Episiotomy Description: Right Mediolateral Time Spent with Patient Time attestation: Total time spent providing and/or coordinating discharge services: Exam Vital Signs Temp Pulse Resp BP Pulse Ox O2 Del Method 97.7 F 81 16 94/60 98 Room Air 02/28/25 03:13 02/28/25 03:13 02/28/25 03:13 02/28/25 03:13 02/28/25 03:13 02/28/25 03:13 Discharge Plan Plan Patient Disposition: HOME (Self Care) Patient condition on transfer: Stable Prescriptions/Referrals Prescriptions/Med Rec: New docusate sodium [Stool Softener] 100 mg capsule 100 mg PO QDAY 30 Days Qty: 30 0RF ibuprofen 600 mg tablet 600 mg PO Q6H MDD 4 PRN (Reason: fever or pain) 10 Days Qty: 40 0RF Continued vit-iron fum-folic ac [ Vitamin with Minerals] 28 mg iron- 800 mcg tablet 1 tab PO QDAY Qty: 60 3RF Referrals: Howard Norwood MD [Physician, [facility]] No Primary/Family,Physician [Primary Care Provider] Patient/Caregiver Discharge Instructions Meds to Beds: Yes Discharge Activity: activity as tolerated Education Materials: After a Vaginal , Perineum Care After Childbirth, Exercising After , After Delivery Concerns, Breast Care After , Incision Care After Vaginal Print Language: Greenlandic Stand Alone Forms: Ashley Award Info., Patient Portal Info Letter Discharge Order Discharge Orders: Discharge (Routine); Ordered 02/28/25 Ordered By: Howard Norwood Planned Discharge Date 02/28/25
[2025-02-28 08:15] VITALS: BP 108/71; PULSE 77; RESP 16; TEMP 36.7; O2SAT 99
--- NOTE | 2025-02-28 09:32 | PC.CC ---
Patient is a 30 year-old, female, presents to the hospital to deliver her baby boy. [employer] received a referral for concerns for late to care. COL[employer] P[employer] APPLIER, Francoise, made [id number] contact to complete an assessment due to concerns of late to care.. COL[employer] P[employer] APPLIER introduced herself, role in the agency, reason for visit, and discussed limits of confidentiality. Patient appeared alert and oriented to self, time, place, and situation. Patient made good eye contact. Patient was cooperative. Patient?s behavior appeared ordinary. No signs of delusions or hallucinations. Patient confirmed information on demographics. Patient reports the father of the baby is her significant other, Jung Giron. Patient reports she was not able to establish care when she fouind out she was as there were no available appointments. Patient reports she made contact with the insurance company to help establish care but they also had difficulty as there were not openings in the area with OBGYN. Patient reports that once care was established she was consistent with her appointments. COL[employer] P[employer] APPLIER provided psychoeducation regarding baby blues and Post- Depression, as well as counseling groups at the [facility] and [facility]. SW provided community resources: Warm Line and Crisis Line. Patient denied history with CWS as this is her first child. Patient denied history of domestic violence. Patient reports she has all the supplies she needs for her new-born and is not receiving Welfare, SNAP, [employer]. Patient reports her support system includes her significant other family. [employer]PLIER provided update to bedside TISH Bhakta.
== END 2025-02-28 17:43 | disposition home or self-care (01) | DRG 560 ==
LOC: S4SX 14:35 → S4NX 22:46
PROVIDERS: Admitting Provider Obstetrics & Gynecology; Visit Provider Obstetrics & Gynecology
DX: O48.0 Post-term pregnancy (principal); O76 Abnormality in fetal heart rate and rhythm complicating labor and delivery; Z37.0 Single live birth; Z3A.40 40 weeks gestation of pregnancy
CPT/HCPCS: 36415; 59025; 59409; 76805; 80307; 85025; 86780; 86850; 86900; 86901; 94762; J0131; J0689; J2210; J2590; J3490; J7120; S0191; A9270

== ENCOUNTER 2025-04-01 11:21 | Outpatient (AMB) | payer MEDICAID, SELFPAY ==
--- NOTE | 2025-04-01 11:27 | AMB.OBPP ---
Vital Signs 04/01/25 11:28 Weight 69.513 kg Weight Measurement Method Standing Scale BP 111/77 Blood Pressure Source Automatic Cuff Blood Pressure Location Left Upper Arm Position Sitting Respiration 18 Pulse 81 Pulse Source Monitor Temp 98.2 F Temp Source Oral Pulse Oximetry (%) 98 Oxygen Delivery Method Room Air Allergies/Home Meds Allergies & Medications Allergies No Known Allergies Allergy (Verified 04/01/25 11:28) Medication Reconciliation vitamin-ferrous fumarate 28 mg iron-folic acid 800 mcg tablet ( Vitamins with Minerals) 1 tab PO QDAY #60 tabs 11/16/24 [Rx Confirmed 04/01/25] Intake Visit Data Collection New Patient or Established: Established Patient (seen at [facility] within 3 years) Reason for Visit:: POST[ARTUM Seen by Clinical Staff ONLY (RN/MA): No Research Associate Required: No Do You Feel Safe at Home: Yes Authorities Contacted: N/A PCP or OBGYN visit in last 3 months: Yes Date of Last PCP or OBGYN visit: 02/28/25 Hx Now: No Are you currently on any form of Control: No Pain Present Currently: No Pain Scale Used: Campos-Saba/Numerical Pain scale:: 0 Smoking Status Smoking Status: Never smoker Immunizations Flu Vaccine in the Last 12 Months: Yes Flu Vaccine Exclusion Criteria: No 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 Medical History Past Medical History: No Hx Neurological Disorders, No Hx Breast Cancer, No Hx Cardiac Disorders, No Hx Cancer, No Hx Blood Disorders, No Hx Gastrointestinal Disorders, No Hx Renal Disease, No Hx Diabetes Mellitus Type 1 and No Hx Diabetes Mellitus Type 2 Questionnaires Covid-19 Vaccine Questionnaire Has patient been vacinated for Covid-19 Have you been vacinated for Covid-19: No Social History Living Situation History Lives With: Family Housing: House Tobacco History Smoking Status: Never smoker Second Hand Smoke Exposure: No Alcohol History Alcohol Intake: Never Domestic Abuse History Do You Feel Safe at Home: Yes EPDS - PP Depression Screening [facility] Pospartum Depression Screen I have been able to laugh and see the funny side of things: (0) As much as I always could I have looked forward with enjoyment to things: (0) As much as I ever did I have blamed myself unnecessarily when things went wrong: (0) No, never I have been anxious or worried for no good reason: (0) No, not at all I have felt scared or panicky for no very good reason: (0) No, not at all Things have been getting on top of me: (0) No, I have been coping as well as ever I have been so unhappy that I have had difficulty sleeping: (0) No, not at all I have felt sad or miserable: (0) No, not at all I have been so unhappy that I have been crying: (0) No, never The thought of harming myself has occurred to me: (0) Never Total Score: EPDS Score: Referral is indicated for score of 9 or more, suicidal, or if provider believes patient is depressed regardless of score.: 0 EPDS completed yes Care OB Visit Log OB Flowsheet Initial Weight: Not Recorded Date <del>?</del> EGA Weight BP Alb Glu CTX Pres Fundal ht FHR Mov Dilation Station Effacement Hx Notes Visit Note 11/16/24 <del>?</del> 26w 0d 65.431 kg 107/72 absent unknown 25 135 active 24 yo for OBI. No pTL or ob complaints. Denies LOF.VB.UC, fetus active. needs refill PNV. unable to go to [facility], no transportation, Sono today at [facility], refill pnv. OB panel, NIPT and carrier, 1 hr gtt/tsh. discuss PTL precaution, hydrate. rtc 4 week obc 12/15/24 <del>?</del> 30w 1d 68.209 kg 107/70 absent unknown 30 136 active Fetus active. Denies labor complaints. Patient would like Tdap. Reports good movement. Denies leaking. Denies bleeding. And patient agrees to [facility] appointment Tdap. Third trimester labs. Schedule maternal- medicine appointment with Dr. Rubin. Increase fluids. Discussed labor precautions. Return in 2 weeks at which discussed tea Tdap. 3 hr gtt labs. Schedule maternal- medicine appointment with Dr. Rubin. Increase fluids. Discussed labor precautions. Return in 2 weeks at which discussed TDAP today 12/29/24 <del>?</del> 32w 1d 70.023 kg 112/74 absent unknown 32 135 active Reports good movement. Fetus is active. Denies any signs symptoms of labor. Denies bleeding, contractions, leakage Discussed diet and weight. Increase activity. Patient declined ultrasound with maternal- medicine. So scheduled with [facility] for growth ultrasound. Discussed labor precautions. Increase fluids. Continue prenatals. Limit carbs and sugary foods and return in 2 weeks OB check. 01/13/25 <del>?</del> 34w 2d 70.76 kg 114/73 absent cephalic 34 135 active Fetus active. Denies labor complaints. Denies leaking, denies bleeding, denies contractions. Increase fluids. Discussed labor precautions. Discussed kick count. ER precautions given. Return in a week for OB check and GBS 01/22/25 <del>?</del> 35w 4d 72.235 kg 119/78 absent cephalic 35 135 active fetus active, deneis UC/VB/SROM. Return in a week OB check GBS today. Discussed labor precautions. Kick count twice a day. Increase fluids. Continue prenatals. Return in a week for OB check. Ultrasound for growth today. GBS today. Discussed labor precautions. Kick count twice a day. Increase fluids. Continue prenatals. Return in a week for OB check. Ultrasound for growth today. At [facility] image 01/27/25 <del>?</del> 36w 2d 72.745 kg 112/73 absent cephalic 36 135 active Fetus active per patient. Denies leaking, bleeding, contractions. No OB discomforts or complaints [facility] referral is pending. Patient has a referral approved. Discussed labor precautions and kick count. Discussed danger signs symptoms and ER precautions. Return precautions 02/09/25 <del>?</del> 38w 1d 74.503 kg 103/69 occasional cephalic 38 156 active Patient was seen at [facility] labor and delivery and discharged home. She was seen because of discomforts of . Reports good movement. Occasional contraction. Denies leaking or Reviewed labor precautions. Kick count twice a day. Comfort measures for early labor. I discussed PIH signs symptoms and precautions. Danger signs symptoms return a week OB check 02/19/25 <del>?</del> 39w 4d 75.948 kg 116/79 occasional cephalic 39 150 active 1 -08 07 CX: L/C/P/soft. Fetus active. Occasional contractions that are regular. Denies leaking or bleeding. Reports good movement Reviewed labor precautions. Kick count twice a day. Discussed danger signs symptoms and ER precautions. Return in a week OB check RAIN Calculator Estimated Delivery Date Method Current WG Current Estimate 02/22/25 LMP (Certain) 45w 3d Other Estimates 02/27/25 Ultrasound #1 44w 5d 03/09/25 Ultrasound #2 43w 2d 02/22/25 Manual 45w 3d final rain: 02/22/25 Notes Visit Date: 02/09/25 Last Updated by: Judith Maguire CNM SONO 01/29: iup 34W3, efw: 45%, shey: 22 Visit Date: 01/27/25 Last Updated by: Judith Maguire CNM 01/13: GBS- Visit Date: 12/29/24 Last Updated by: Judith Maguire CNM 24 yo . LMP 05/18/24: edc: 02/22/25 final: RAIN: 02/22/25 1 hr gtt: 156/3 hr gtt wnl Visit Date: 12/15/24 Last Updated by: Judith Maguire CNM 1 hr gtt: 156, A1: 5.4, NIPT-, CF/SMA-, O+.abs-, rpr;;nr, rub imm, HBSAG-,HIV-,HC-, GC/CT-, .3, UTI tx with macrobid Visit Date: 11/16/24 Last Updated by: Judith Maguire CNM 24 yo . lmp 05/18/24. EDC: 02/22/25 HPI Interval History: 24-year-old 2 para 2 for 5-week . Patient had a vaginal February 26, 2025. She had a baby boy weighing 6 pounds 9. She is bottlefeeding patient is happy no signs of depression reported. Father the baby is involved and she has limited help at home. They have not had sexual intercourse. And patient would like to do the Depo shot. No interval problems or complaints. And patient has an appointment April [address] 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 Lungs clear no wheezes. Abdomen is soft nontender. Uterus well involuted. Perineum is intact no lacerations. No swelling. Small lochia. Negative Homans' sign. 2+ DTRs. No edema no swelling. Breasts are soft Office Procedures OBC Clinic LOC & Office Proc's Nursing/Assessment Patient Status: Established Patient OB Clinic Nursing Assessment: Medication Reconciliation, Update PMH in EMR and Vital Signs OB Clinic Coordination of Care: Complex Care and Chronic Disease 1-5, Consent,records obtained, informed consent, Education Simp Pt/Fam, Lab and Imaging orders, Results/Orders obtained and Staff clarify orders Established Patient Charge Established Patient Point Assignment: 105 Established Patient Point Charge: EP Level 3 (80-115) Office Meds Depo-Provera 150 mg/mL intramuscular syringe Performing Provider: Judith Maguire CNM Performing Location: [facility] Administered by: Johanny Jacobson MA on 04/01/25 11:54 Dose Route Admin Location Dispensed Lot Number Expiration Date Package NDC NDC [employer] 150 mg IM RIGHT GLUTE 1 mL [id number] 01/13/26 4859-8316-35 [id number] [facility] Assessment & Plan Diagnosis / Problem List (1) 6 weeks follow-up: Status: Acute (2) Encounter for Depo-Provera contraception: Status: Acute Plan Depo 150 IM. Continue prenatals. Walk 40 minutes a day. Take vitamin D and calcium. Condoms for 2 weeks. And we reviewed method and side effects. Return in 3 months repeat Depo or in 3 years after Nexplanon was placed Care Reviewed delivery summary and any complications: Yes Uterus involuted to: 3 below Perineal / incision healing noted: Yes Screened for depression: Yes Depression counseling provided: No Discussed family planning & contraception: Yes Contraception planned: depo Counseling on safe resumption of sexual activity: Yes Counseling on gradual excercise: Yes Discussed and concerns (describe), provided support: No Referred to medical specialist: No Counseled on good nutrition, hydration, and self care: Yes Reviewed vaccine status: No Infant care discussed; questions answered: feeding Follow up: routine/prn Additional counseling & anticipatory guidance provided: Depo 150 IM x 1. Condoms for 2 weeks. Reviewed method and side effects and danger signs symptoms. Return in 3 months for repeat Depo or in 3 years for Nexplanon removal
[2025-04-01 11:28] VITALS: BP 111/77; PULSE 81; RESP 18; TEMP 36.8; O2SAT 98
== END 2025-04-01 11:48 | disposition home or self-care (01) ==
LOC: HODSOBC 11:21
PROVIDERS: Supervising Provider Advanced Practice Midwife; Visit Provider Advanced Practice Midwife
DX: Z39.2 Encounter for routine postpartum follow-up (principal); Z30.013 Encounter for initial prescription of injectable contraceptive
CPT/HCPCS: 96372; 99213; J3490; G0463